=== PATIENT | female | born 2000 | race Caucasian/White ===

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

== ENCOUNTER 2018-04-19 14:32 | Emergency (ER) | payer BC ==
[~2018-04-19] VITALS: Ht 162.6 cm; Wt 77.2 kg
[~2018-04-19 14:32] MED LIST: ONDA4TAB10 SL
[2018-04-19 14:35] VITALS: TEMP 36.6; Ht 162.6 cm; Wt 77.2 kg
--- NOTE | 2018-04-19 15:25 | EMERGENCY ROOM VISIT NOTE ---
ED Visit Note First contact with patient: 14:38 CHIEF COMPLAINT: Pain with urination, altered personality HISTORY OF PRESENTING ILLNESS: This is a 17-year-old female who presents to the emergency department with her mother with complaint of pain with urination and altered personality for the past 3-4 days. Patient states she has been having dysuria, increased frequency of urination, but only urinating a small amount. Patient's mother states that she has been emotional and "all over the place" for the past few days as well. The patient is a poor historian and is unable to provide an accurate history. Per the patient's mother, she is acting very different from her usual self the past few days. The patient denies any hallucinations, SI/HI or thoughts of attempt. Per patient and her mother, she has no personal history of anxiety, depression, or mental health issues, but does have a younger sister who is on the autism spectrum and is diagnosed with multiple mental health problems. Private interview with the patient with the mom out of the room was also performed, the patient denies any physical or sexual abuse, she denies being sexually active, and she denies any recreational drug or alcohol use. She does note that she used to go to college and has not been able to go back, she is upset that she is missing out on things that her friends are doing. She also notes that her parents have given her a deadline for moving out of the house by the end of the year and she is feeling anxious about this. REVIEW OF SYSTEMS: A complete 10 point review of systems was reviewed with the patient with pertinent positives and negatives as per history of present illness. All else were negative. PAST MEDICAL HISTORY: No significant past medical or surgical history. Up-to- date on immunizations. SOCIAL HISTORY: Lives at home with family. She has a job at [employer]. She denies tobacco use, alcohol use, recreational drug use. ALLERGIES: No known medication allergies. PHYSICAL EXAM: CONSTITUTIONAL: Alert, cooperative. Appears anxious and tearful on exam. No acute distress. Mildly dehydrated, but otherwise well appearing and well nourished. HEENT: Normocephalic, atraumatic. Pupils equal, round and reactive to light, EOMI. TMs normal. Pharynx normal. Tacky mucous membranes. NECK: Supple, full active range of motion without discomfort. RESPIRATORY: Clear to auscultation bilaterally with no wheezing, crackles, rhonchi or stridor. Equal expansion bilaterally. CARDIOVASCULAR: Regular rate and rhythm with no murmurs, rubs or gallops. Normal peripheral perfusion. No edema. GASTROINTESTINAL: Soft, nontender, nondistended. No palpable masses or HSM. Bowel sounds present in all quadrants. MUSCULOSKELETAL: Full range of motion of all joints without discomfort. INTEGUMENTARY: No rash or other significant dermatologic conditions noted. NEUROLOGIC: Alert and oriented X 4 with normal affect. Cranial nerves II-XII grossly intact, no facial droop. No pronator drift. No focal neurologic deficits noted. Normal strength and sensation in all 4 extremities. Normal speech. Normal gait observed. PSYCH: Anxious and tearful at times. Rambling and tangential speech. Difficulty with completing a thought. Flight of ideas. Difficulty sitting still. ED COURSE AND MEDICAL DECISION MAKING: CC: Patient presenting with complaint of dysuria, altered personality DIFFERENTIAL DIAGNOSIS: Includes, but not limited to UTI, pyelonephritis, dehydration, electrolyte abnormality, substance abuse, incidental , anxiety, depression, bipolar, suicidality, DKA, metabolic acidosis, thyroid disorder, acute psychosis, among others. INTERPRETATION OF LABS: No leukocytosis, no anemia, normal platelets, no significant electrolyte abnormalities, normal renal function, normal liver enzymes. TSH within normal limits. UA negative for infection, mild ketones. Urine negative. Urine drug screen negative. MEDICATION RECONCILIATION: I attest that I have personally reviewed the patient 's current medication list. INITIAL VITAL SIGNS REVIEW: I reviewed the patient's initial vital signs and interpret them as follows: T: Afebrile; BP: Normotensive; HR: Bradycardic; RR : Within normal limit; Pulse Ox: Within normal limits on room air. Blood pressure screening: The patient was found to have normal blood pressure on screening and does not require follow-up for repeat blood pressure check. SUMMARY: Patient was evaluated at bedside, history and physical exam performed. Patient is alert and oriented, in no acute, but does appear anxious and tearful , pacing around the room. Neurologic exam is normal with no focal deficits. Patient is fully oriented 4 , but has difficulty formulating thoughts and has flight of ideas and tangential conversation. Patient seems very anxious about many different things, including school, work, and family. Orders were placed at bedside for labs, UA and urine , urine drug screen to evaluate for medical clearance. Patient discussed with Dr. Cross, who agrees with my assessment and plan. Labs reviewed as above, unremarkable. She does appear to be mildly dehydrated, which may be the cause of her dysuria. She was encouraged to hydrate with oral fluids. I spoke with Viola, psych skilled nursing case manager, who did evaluate the patient, and felt that she could be appropriate for voluntary inpatient treatment if the patient was agreeable. Please see her note for further details. The patient was given sublingual Ativan 1 mg for her severe anxiety. On reassessment, the patient does seem more calm and is able to formulate her thoughts better, and she is no longer tearful, but does continue to have flight of ideas and some tangential speech. Patient also seems to get especially agitated when including her mother in the discussion. She was strongly encouraged by myself and the psych skilled nursing case manager to consider inpatient therapy to best meet her needs. The patient repeatedly states "I know I should stay but I don't want my parents going through my things. I have a dog who has really bad separation anxiety and I just got him to not worry when I leave." After a lengthy discussion with the patient, the psychiatric skilled nursing case manager, and the patient's mother, the patient did verbalize that she did not wish to be admitted and would like to be discharged home. Patient is not exhibiting any dangerous behaviors, and she denies any suicidal or homicidal ideations or plans. I do believe that she is safe to be discharged home. Patient was provided with outpatient resources for psychiatric help, and was encouraged to follow-up with her PCP as well. Patient was also given strict return precautions should her symptoms worsen, she verbalized understanding. Patient was discharged home in stable condition and ambulatory. Problem List Medical Problems: (1) No Known Active Medical Problems Status: Chronic Current/Historical Medications No Active Prescriptions or Reported Meds Allergies Coded Allergies: Latex (Verified Allergy, Intermediate, Rash, 04/19/18) Vital Signs Date Time Temp Pulse Resp B/P (MAP) Pulse Ox O2 Delivery O2 Flow Rate FiO2 04/19/18 19:09 93 18 123/88 98 04/19/18 18:30 107 20 137/79 94 Room Air 04/19/18 16:30 112 20 120/80 100 Room Air 04/19/18 14:35 36.6 55 17 134/87 97 Room Air Laboratory Results 04/19/18 15:15 Red Blood Count 4.66, Mean Corpuscular Volume 88.8, Mean Corpuscular Hemoglobin 29.8, Mean Corpuscular Hemoglobin Concent 33.6, Mean Platelet Volume 9.2, Neutrophils (%) (Auto) 61.5, Lymphocytes (%) (Auto) 32.6, Monocytes (%) (Auto) 4.5, Eosinophils (%) (Auto) 0.8, Basophils (%) (Auto) 0.3, Neutrophils # (Auto) 5.91, Lymphocytes # (Auto) 3.14, Monocytes # (Auto) 0.43, Eosinophils # (Auto) 0.08, Basophils # (Auto) 0.03 04/19/18 15:15 Test 04/19/18 15:10 04/19/18 15:15 Urine Color YELLOW Urine Appearance CLEAR (CLEAR) Urine pH 5.5 (4.5-7.5) Urine Specific [place] 1.007 (1.000-1.030) Urine Protein NEG (NEG) Urine Glucose (UA) NEG (NEG) Urine Ketones 1+ (NEG) Urine Occult Blood NEG (NEG) Urine Nitrite NEG (NEG) Urine Bilirubin NEG (NEG) Urine Urobilinogen NEG (NEG) Urine Leukocyte Esterase NEG (NEG) Urine Test NEG (NEG) Urine Opiates Screen NEG (NEG) Urine Methadone, Qualitative NEG (NEG) Urine Barbiturates NEG (NEG) Urine Phencyclidine (PCP) Level NEG (NEG) Ur Amphetamine/Methamphetamine NEG (NEG) MDMA (Ecstasy) Screen NEG (NEG) Urine Benzodiazepines Screen NEG (NEG) Urine Cocaine Metabolite NEG (NEG) Urine Marijuana (THC) NEG (NEG) White Blood Count 9.62 K/uL (4.8-10.8) Red Blood Count 4.66 M/uL (4.2-5.4) Hemoglobin 13.9 g/dL (12.0-16.0) Hematocrit 41.4 % (37-47) Mean Corpuscular Volume 88.8 fL (80-100) Mean Corpuscular Hemoglobin 29.8 pg (25-34) Mean Corpuscular Hemoglobin Concent 33.6 g/dl (32-36) Platelet Count 396 K/uL (130-400) Mean Platelet Volume 9.2 fL (7.4-10.4) Neutrophils (%) (Auto) 61.5 % Lymphocytes (%) (Auto) 32.6 % Monocytes (%) (Auto) 4.5 % Eosinophils (%) (Auto) 0.8 % Basophils (%) (Auto) 0.3 % Neutrophils # (Auto) 5.91 K/uL (1.4-6.5) Lymphocytes # (Auto) 3.14 K/uL (1.2-3.4) Monocytes # (Auto) 0.43 K/uL (0.11-0.59) Eosinophils # (Auto) 0.08 K/uL (0-0.5) Basophils # (Auto) 0.03 K/uL (0-0.2) RDW Standard Deviation 45.2 fL (36.4-46.3) RDW Coefficient of Variation 13.9 % (11.5-14.5) Immature Granulocyte % (Auto) 0.3 % Immature Granulocyte # (Auto) 0.03 K/uL (0.00-0.02) Anion Gap 9.0 mmol/L (3-11) Est Creatinine Clear Calc Drug Dose 135.9 ml/min Estimated GFR () 147.7 Estimated GFR (Non- 127.4 BUN/Creatinine Ratio 11.2 (10-20) Calcium Level 9.2 mg/dl (8.5-10.1) Total Bilirubin 0.7 mg/dl (0.2-1) Aspartate Amino Transf (AST/SGOT) 26 U/L (15-37) Alanine Aminotransferase (ALT/SGPT) 80 U/L (12-78) Alkaline Phosphatase 66 U/L (45-117) Total Protein 7.9 gm/dl (6.4-8.2) Albumin 4.5 gm/dl (3.4-5.0) Globulin 3.4 gm/dl (2.5-4.0) Albumin/Globulin Ratio 1.3 (0.9-2) Thyroid Stimulating Hormone (TSH) 0.853 uIu/ml (0.300-4.500) Medications Administered Medications (Trade) Dose Ordered Sig/Anabella Route Start Time Stop Time Status Last Admin Dose Admin Lorazepam (Ativan Tab) 1 mg NOW STAT SL 04/19/18 17:05 04/19/18 17:06 DC 04/19/18 17:14 1 MG Departure Information Impression Primary Impression: Anxiety Additional Impression: Dehydration Dispostion Home / Self-Care Condition GOOD Prescriptions No Active Prescriptions or Reported Meds Referrals No Doctor, Assigned (PCP) Patient Instructions ED Psychosis, ED Stress React, My [facility] Additional Instructions You have been evaluated and treated in the emergency department today for your discomfort with urination and for your anxiety. You were treated with Ativan for your anxiety today. You were found to be mildly dehydrated, but no evidence of a urinary tract infection or any other abnormalities and laboratory results have ruled out any emergent reasons for further evaluation or admission. Drink plenty of fluids throughout the day to stay well hydrated. Please follow-up with your primary care provider in the next few days for reevaluation. You have also been provided with resources by our Psychiatric skilled nursing case manager for outpatient treatment options. Please call to set this up. Please return to the emergency department for any worsening symptoms including severe worsening anxiety, thoughts of harming yourself or others, hallucinations , severe headaches, confusion, dizziness or passing out, or any other concerns. Work Instructions Return To Work: 3 days Problem Qualifiers
[2018-04-19 15:48] LABS: BASO % 0.3 %; BASO ABS # 0.03 K/uL (0-0.2); EOS % 0.8 %; EOS ABS # 0.08 K/uL (0-0.5); HEMATOCRIT 41.4 % (37-47); HEMOGLOBIN 13.9 g/dL (12.0-16.0); IG# 0.03 K/uL (0.00-0.02); LYMPH % 32.6 %; LYMPH ABS # 3.14 K/uL (1.2-3.4); MEAN CELL VOLUME 88.8 fL (80-100); MEAN CORPUSCULAR HEMOGLOBIN 29.8 pg (25-34); MEAN CORPUSCULAR HGB CONC 33.6 g/dl (32-36); MEAN PLATELET VOLUME 9.2 fL (7.4-10.4); MONO % 4.5 %; MONO ABS # 0.43 K/uL (0.11-0.59); NEUT % 61.5 %; NEUT ABS # 5.91 K/uL (1.4-6.5); PLATELET COUNT 396 K/uL (130-400); RED CELL DISTRIBUTION WIDTH CV 13.9 % (11.5-14.5); RED CELL DISTRIBUTION WIDTH SD 45.2 fL (36.4-46.3); WHITE BLOOD COUNT 9.62 K/uL (4.8-10.8)
[2018-04-19 16:17] LABS: ALBUMIN 4.5 gm/dl (3.4-5.0); CALCIUM 9.2 mg/dl (8.5-10.1); CREATININE 0.67 mg/dl (0.60-1.20); POTASSIUM 3.5 mmol/L (3.5-5.1); TOTAL PROTEIN 7.9 gm/dl (6.4-8.2)
[2018-04-19] MEDS ORDERED: LORAZEPAM 1 MG TAB SL STA (17:05)
[2018-04-19 19:09] VITALS: BP 123/88; PULSE 93; O2SAT 98
== END 2018-04-19 19:09 | disposition home or self-care (01) ==
LOC: C.EDB 14:34 → C.EDC 19:09
DX: F41.9 Anxiety disorder, unspecified (principal); E86.0 Dehydration; Z91.040 Latex allergy status

== ENCOUNTER 2018-04-19 20:11 | Inpatient (IN) | payer BC, OTHER ==
[~2018-04-19] VITALS: Ht 162.6 cm; Wt 76.3 kg
[2018-04-19 20:36] VITALS: O2SAT 98
--- NOTE | 2018-04-19 21:00 | EMERGENCY ROOM VISIT NOTE ---
History Report prepared by Yesenia: Monty French Under the Supervision of: Dr. Michael Rob M.D. First contact with patient: 20:21 Chief Complaint: MENTAL HEALTH EVALUATION Stated Complaint: MENTAL HEALTH History of Present Illness The patient is a 17 year old female who presents to the Emergency Room. EMR was reviewed. The patient was discharged 3 hours ago. At that time, labs were normal , including CBC, renal profile, urinalysis, liver function test, and TSH. The psychiatric adult protective caseworker states that she spoke with the patient an hour ago. She reports that the mother told her that the patient is "flighty" and denies suicidal or homicidal ideation. She reports that they deny any personal mental health history of the patient.The patient states that she wanted to be discharged, but her mother wanted her to come back. The mother then claims that the patient told her that she was unsure why they discharged her. The patient then elaborated that she does want to be reevaluated but "can't get over the room" she is currently in and reports feeling anxious. The patient and her mother note that the patient's sibling has a history of "severe" mental health problems, and the patient does not want to be like her sibling. She denies having difficulty concentrating. She states that she did not have anything to eat today. Source of History: patient, parent, other (psychiatric adult protective caseworker, EMR) Onset: 3 hours ago Position: other (global) Quality: other (wanting reevaluation) Modifying Factors (Relieving): other (none) Note: denies difficulty concentrating Review of Systems See HPI for pertinent positives and negatives. A total of ten systems were reviewed and were otherwise negative. Past Medical & Surgical Medical Problems: (1) No Known Active Medical Problems Family History History of mental health disorder in sibling Social History Smoking Status: Never Smoker Alcohol Use: none Housing Status: lives with family Occupation Status: student Current/Historical Medications No Active Prescriptions or Reported Meds Allergies Coded Allergies: Latex (Verified Allergy, Intermediate, Rash, 04/19/18) Physical Exam Vital Signs Date Time Temp Pulse Resp B/P (MAP) Pulse Ox O2 Delivery O2 Flow Rate FiO2 04/19/18 20:36 36.9 115 24 127/99 98 Room Air Physical Exam Physical Exam GENERAL: She is oriented to person, place, and time. She appears well- developed and well-nourished. She does not appear distressed. HENT: Exam performed. Head: Normocephalic and atraumatic. Right Ear: External ear normal. No mastoid tenderness. Left Ear: External ear normal. No mastoid tenderness. Mouth/Throat: The oropharynx is clear and moist. No trismus in the jaw. No dental abscesses or uvula swelling. No oropharyngeal exudate or tonsillar abscesses. EYES: Conjunctivae and EOM are normal. Pupils are equal, round, and reactive to light. Right eye exhibits no discharge. Left eye exhibits no discharge. No scleral icterus. NECK: Normal range of motion. Neck supple. No JVD present. No spinous process tenderness present. No carotid bruit present. No rigidity. No tracheal deviation and normal range of motion present. No Brudzinski's sign and no Kernig 's sign noted. CV: Normal rate, regular rhythm, normal heart sounds and intact distal pulses. There is no peripheral edema. Palpable radial pulses bue. PULM/CHEST: Effort normal and breath sounds normal. No respiratory distress. No stridor. She has no wheezes. She has no rales. Chest Wall: She exhibits no tenderness. ABD: The abdomen is soft. Bowel sounds are normal. She has no distension. No mass is present. There is no tenderness. There is no rebound, no guarding, no Carroll's sign and no tenderness at McBurney's point. Rovsig negative MUSC/SKEL: Normal range of motion. There is no peripheral edema, tenderness or deformity. LYMPH: No cervical adenopathy. NEURO: She is alert and oriented to person, place, and time. She has normal strength. No cranial nerve deficit or sensory deficit. Coordination and gait normal. GCS eye subscore is 4. GCS verbal subscore is 5. GCS motor subscore is 6. Cerebellar tests wnl. SKIN: Skin is warm and dry. She is not diaphoretic. PSYCH: She has a labile mood and affect. She is very anxious. Crying and yelling at mother. Medical Decision & Procedures Laboratory Results 04/19/18 22:55 Red Blood Count 4.67, Mean Corpuscular Volume 88.4, Mean Corpuscular Hemoglobin 30.0, Mean Corpuscular Hemoglobin Concent 33.9, Mean Platelet Volume 9.0, Neutrophils (%) (Auto) 65.8, Lymphocytes (%) (Auto) 27.9, Monocytes (%) (Auto) 5.2, Eosinophils (%) (Auto) 0.6, Basophils (%) (Auto) 0.3, Neutrophils # (Auto) 6.32, Lymphocytes # (Auto) 2.68, Monocytes # (Auto) 0.50, Eosinophils # (Auto) 0.06, Basophils # (Auto) 0.03 04/19/18 22:55 Test 04/19/18 00:00 04/19/18 22:55 Urine Color YELLOW Urine Appearance CLEAR (CLEAR) Urine pH 5.0 (4.5-7.5) Urine Specific [place] 1.020 (1.000-1.030) Urine Protein NEG (NEG) Urine Glucose (UA) NEG (NEG) Urine Ketones 4+ (NEG) Urine Occult Blood NEG (NEG) Urine Nitrite NEG (NEG) Urine Bilirubin NEG (NEG) Urine Urobilinogen NEG (NEG) Urine Leukocyte Esterase NEG (NEG) Urine Test NEG (NEG) Urine Opiates Screen NEG (NEG) Urine Methadone, Qualitative NEG (NEG) Urine Barbiturates NEG (NEG) Urine Phencyclidine (PCP) Level NEG (NEG) Ur Amphetamine/Methamphetamine NEG (NEG) MDMA (Ecstasy) Screen NEG (NEG) Urine Benzodiazepines Screen NEG (NEG) Urine Cocaine Metabolite NEG (NEG) Urine Marijuana (THC) NEG (NEG) White Blood Count 9.61 K/uL (4.8-10.8) Red Blood Count 4.67 M/uL (4.2-5.4) Hemoglobin 14.0 g/dL (12.0-16.0) Hematocrit 41.3 % (37-47) Mean Corpuscular Volume 88.4 fL (80-100) Mean Corpuscular Hemoglobin 30.0 pg (25-34) Mean Corpuscular Hemoglobin Concent 33.9 g/dl (32-36) Platelet Count 377 K/uL (130-400) Mean Platelet Volume 9.0 fL (7.4-10.4) Neutrophils (%) (Auto) 65.8 % Lymphocytes (%) (Auto) 27.9 % Monocytes (%) (Auto) 5.2 % Eosinophils (%) (Auto) 0.6 % Basophils (%) (Auto) 0.3 % Neutrophils # (Auto) 6.32 K/uL (1.4-6.5) Lymphocytes # (Auto) 2.68 K/uL (1.2-3.4) Monocytes # (Auto) 0.50 K/uL (0.11-0.59) Eosinophils # (Auto) 0.06 K/uL (0-0.5) Basophils # (Auto) 0.03 K/uL (0-0.2) RDW Standard Deviation 44.7 fL (36.4-46.3) RDW Coefficient of Variation 13.9 % (11.5-14.5) Immature Granulocyte % (Auto) 0.2 % Immature Granulocyte # (Auto) 0.02 K/uL (0.00-0.02) Anion Gap 9.0 mmol/L (3-11) Estimated GFR () > 150.0 Estimated GFR (Non- 130.7 BUN/Creatinine Ratio 9.2 (10-20) Calcium Level 8.6 mg/dl (8.5-10.1) Total Bilirubin 0.7 mg/dl (0.2-1) Direct Bilirubin 0.2 mg/dl (0-0.2) Aspartate Amino Transf (AST/SGOT) 20 U/L (15-37) Alanine Aminotransferase (ALT/SGPT) 69 U/L (12-78) Alkaline Phosphatase 67 U/L (45-117) Total Protein 7.5 gm/dl (6.4-8.2) Albumin 4.2 gm/dl (3.4-5.0) Thyroid Stimulating Hormone (TSH) 1.710 uIu/ml (0.300-4.500) Ethyl Alcohol mg/dL < 3.0 mg/dl (0-3) Laboratory results reviewed by me Medications Administered Medications (Trade) Dose Ordered Sig/Anabella Route Start Time Stop Time Status Last Admin Dose Admin Lorazepam (Ativan Inj) 1 mg NOW STAT IM 04/19/18 21:10 04/19/18 21:11 DC 04/19/18 21:14 1 MG ED Course 2031: The patient was evaluated in room A8. A complete history and physical exam was performed. Patient and mother at bedside now both state that they want the patient admitted for mental health evaluation and psychiatric help. Ordered Ativan 1 mg IM. Medical Decision Patient cleared medically will be admitted to psychiatric service. Medication Reconcilliation Current Medication List: was personally reviewed by me Blood Pressure Screening Patient's blood pressure: Normal blood pressure Blood pressure disposition: Did not require urgent referral Impression Primary Impression: Manic episode Scribe Attestation The scribe's documentation has been prepared under my direction and personally reviewed by me in its entirety. I confirm that the note above accurately reflects all work, treatment, procedures, and medical decision making performed by me. The chart was completed utilizing [employer] Speech voice recognition software. Grammatical errors, random word insertions, pronoun errors, and incomplete sentences are an occasional consequence of this system due to software limitations, ambient noise, and hardware issues. Any formal questions or concerns about the content, text, or information contained within the body of this dictation should be directly addressed to the physician for clarification. Departure Information Dispostion Mental Health Acute Care Prescriptions No Active Prescriptions or Reported Meds Referrals Paul Aldana III, CRNP (PCP) Patient Instructions My [facility]
[2018-04-19] MEDS ORDERED: LORAZEPAM 2 MG/ML 1 ML VIAL IM STA (21:10)
[2018-04-19 23:13] LABS: BASO % 0.3 %; BASO ABS # 0.03 K/uL (0-0.2); EOS % 0.6 %; EOS ABS # 0.06 K/uL (0-0.5); HEMATOCRIT 41.3 % (37-47); IG# 0.02 K/uL (0.00-0.02); LYMPH % 27.9 %; LYMPH ABS # 2.68 K/uL (1.2-3.4); MEAN CELL VOLUME 88.4 fL (80-100); MEAN CORPUSCULAR HGB CONC 33.9 g/dl (32-36); MONO % 5.2 %; NEUT % 65.8 %; NEUT ABS # 6.32 K/uL (1.4-6.5); PLATELET COUNT 377 K/uL (130-400); RED CELL DISTRIBUTION WIDTH CV 13.9 % (11.5-14.5); RED CELL DISTRIBUTION WIDTH SD 44.7 fL (36.4-46.3); WHITE BLOOD COUNT 9.61 K/uL (4.8-10.8)
[2018-04-19] MEDS ORDERED: NURSING VERBAL MED ORDER ONE (23:15)
[2018-04-19 23:43] LABS: ALBUMIN 4.2 gm/dl (3.4-5.0); ALKALINE PHOSPHATASE 67 U/L (45-117); ALT/SGPT 69 U/L (12-78); AST/SGOT 20 U/L (15-37); BLOOD UREA NITROGEN 6 mg/dl (7-18); CALCIUM 8.6 mg/dl (8.5-10.1); CARBON DIOXIDE 23 mmol/L (21-32); CREATININE 0.62 mg/dl (0.60-1.20); GLUCOSE 102 mg/dl (70-99); POTASSIUM 3.6 mmol/L (3.5-5.1); SODIUM 140 mmol/L (136-145); TOTAL PROTEIN 7.5 gm/dl (6.4-8.2)
[2018-04-20] MEDS ORDERED: RISPERIDONE 1 MG TAB PO ONE (00:15)
[2018-04-20] MEDS ORDERED: hydrOXYzine HCL 25 MG TAB PO PRN (01:00)
[2018-04-20] MEDS ORDERED: SODIUM CHLORIDE 0.65% NA SOLN 45 ML (OCEAN) PRN (01:00)
[2018-04-20] MEDS ORDERED: BISMUTH SUBSALICYLATE PER ML OMNICELL CHARGE PO PRN (01:00)
[2018-04-20] MEDS ORDERED: ALUMINUM/MAGNESIUM SUSP 30 ML UDC PO PRN (01:00)
[2018-04-20] MEDS ORDERED: MAGNESIUM HYDROXIDE SUSP 30 ML UDC PO PRN (01:00)
[2018-04-20 01:19] VITALS: BP 123/81; PULSE 99; TEMP 36.9; Ht 162.6 cm; Wt 76.3 kg
--- NOTE | 2018-04-20 10:18 | Psychiatric History & Physical ---
History Date of Service Apr 20, 2018. Identifying Data Tami Peres is a 17-year-old female admitted on Apr 19, 2018 at 23:10 who currently lives with her parents in a private home in [facility]. She was admitted through the [facility] ER last evening, initially presenting for workup of possible UTI, but appeared anxious and disorganized and returned after initial discharge for mental health eval at mother's encouragement. Patient is found to be a rather difficult historian due to circumstantial to tangential thought process. Chief Complaint "I am fine except for my family ". History of Present Illness This is an interesting young woman without prior formalized mental health history. She was admitted through the ER last evening due to mother's concern that she has not been acting like her normal self. Apparently she has been disorganized in her thinking, rambling in her speech, pacing, waking family members up overnight, anxious, demonstrating diminished self-care. Medical workup in the ER was negative for acute process. Drug screen negative. She received Ativan in the ER. At time of admission to the behavioral health unit she was still anxious, labile, disorganized in her thinking, difficult to redirect. She received Risperdal 0.5 mg last evening and ultimately slept well the group room. On interview patient is felt to be a fair historian. Thoughts still meandering, circumstantial to tangential, however she seems to be improved as compared to description of clinical status last evening. She states she has been feeling "fine" apart from stress associated with being with her family members. She describes her family as controlling, her father in particular who she believes "treats me like trash." She denies physical or sexual abuse. She does identify multiple stressors including graduation from [employer] where she felt accepted, recently becoming sick with salmonella from a alevism function, and by the time she had recovered from that many of her friends had already left for college. She is not planning to attend college, working at [employer], and seems to be struggling with the loss and transition. She repeatedly speaks about the fact that she is now an "adult. " She reports her parents are making her pay rent to stay in the home since last June. She describes long-standing stress associated with her autistic younger sisters dramatic behaviors. Apparently her sister would scream, yell, threatened suicide, threatening homicide. Her younger sister has not been living in the household since 2017. "It was always about her." She reports that her younger brother is in therapy for unknown reasons. She states her mother recently told her that her parents marriage is falling apart within the past few weeks. She seems to recoil from questions about her emotional state. "I never talk about myself." She denies recollection of mood cycles in the past , particularly denies periods of hypomania or alaina. She also denies periods of feeling overtly depressed. She does admit that her sleep has been declining in the past week and missed 1 or 2 nights of sleep this week which is not typical for her however she does state that she felt tired after missing the sleep. Energy has been low. She denies crying spells. Appetite has been diminished with 15 pound weight loss since salmonella earlier this month. She notes declining interest. Denies thoughts of life not being worth living, suicidal ideation, homicidal ideation. Denies any history of self-injurious behaviors were impulses. Denies a history of panic attacks and does not perceive herself to be an excessive worrier at her baseline. Historically she does not like to be in crowds and states that she never liked public high school but did not like the smaller [employer] school. Denies symptoms of OCD, PTSD, hallucinations, or appreciation for delusions. She does perceive feeling more calm this morning after getting the Risperdal last night which was well tolerated. Past Psychiatric History Current OP Treatment: no current treatment Prior OP Treatment: no prior treatment (Apart from some family therapy) Prior Psych Hospitalizations: none Access to a Gun: No Suicide Attempts: No Past Medication Trials None Past Medical/Surgical History History of Concussion/Seizure: Yes (History of mild concussion chano year of high school. denies seizure) Denies personal history of obesity, dyslipidemia, diabetes, hypertension, heart disease Allergies Allergies: Coded Allergies: Latex (Verified Allergy, Intermediate, Rash, 04/19/18) Home Medications No Active Prescriptions or Reported Meds Family History History of mental health disorder in sibling History of Suicide: No History of Substance Abuse: Yes Psychiatric History: Yes Father has Crohn's disease and cardiomyopathy. Mother possibly treated for depression. MS. Brother in counseling for unknown mental health disorder. Sister with autism spectrum disorder, ODD, possible bipolar disorder, personality disorder Alcohol Use Alcohol Use In Past 12 Months: No AUDIT Total Score: 0 Smoking Use Smoking Status: Never Smoker Substance History none Personal History Childhood: Present Home with parents in [facility] Education: graduated from high school (Denies behavioral problems. [employer]) Work History: [employer] Relationship History: never Children: 0 Spiritual Affiliation: [employer]. family life [employer] Legal History: none Psychological Trauma History: Other (Chronic family stressors. Denies abuse history) Review of Systems Constitutional: other (Fatigue, weight loss, low appetite) ENT: reports: loss of hearing (Reports gradual loss of hearing on right) Cardiovascular: reports: no symptoms reported Respiratory: reports: no symptoms reported Gastrointestinal: other (Recent nausea and diarrhea result) Genitourinary - Female: reports: no symptoms Musculoskeletal: joint pain Integumentary: no symptoms reported Neurologic: reports: other (Concentration difficulty) Endocrine: no symptoms Hematologic / Lymphatic: no symptoms Examination Physical Examination A physical exam was performed in the ER prior to admission to the unit by Dr Rob. I accept that physical as correct/medical clearance for the inpatient physical exam. Vital Signs Vital Signs Past 12 Hours Date Time Temp Pulse Resp B/P (MAP) Pulse Ox O2 Delivery O2 Flow Rate FiO2 04/20/18 01:19 36.9 99 18 123/81 Laboratory Results Last 24 Hours Test 04/19/18 22:55 White Blood Count 9.61 K/uL Red Blood Count 4.67 M/uL Hemoglobin 14.0 g/dL Hematocrit 41.3 % Mean Corpuscular Volume 88.4 fL Mean Corpuscular Hemoglobin 30.0 pg Mean Corpuscular Hemoglobin Concent 33.9 g/dl Platelet Count 377 K/uL Mean Platelet Volume 9.0 fL Neutrophils (%) (Auto) 65.8 % Lymphocytes (%) (Auto) 27.9 % Monocytes (%) (Auto) 5.2 % Eosinophils (%) (Auto) 0.6 % Basophils (%) (Auto) 0.3 % Neutrophils # (Auto) 6.32 K/uL Lymphocytes # (Auto) 2.68 K/uL Monocytes # (Auto) 0.50 K/uL Eosinophils # (Auto) 0.06 K/uL Basophils # (Auto) 0.03 K/uL RDW Standard Deviation 44.7 fL RDW Coefficient of Variation 13.9 % Immature Granulocyte % (Auto) 0.2 % Immature Granulocyte # (Auto) 0.02 K/uL Sodium Level 140 mmol/L Potassium Level 3.6 mmol/L Chloride Level 108 mmol/L Carbon Dioxide Level 23 mmol/L Anion Gap 9.0 mmol/L Blood Urea Nitrogen 6 mg/dl Creatinine 0.62 mg/dl Estimated GFR () > 150.0 Estimated GFR (Non- 130.7 BUN/Creatinine Ratio 9.2 Random Glucose 102 mg/dl Calcium Level 8.6 mg/dl Total Bilirubin 0.7 mg/dl Direct Bilirubin 0.2 mg/dl Aspartate Amino Transf (AST/SGOT) 20 U/L Alanine Aminotransferase (ALT/SGPT) 69 U/L Alkaline Phosphatase 67 U/L Total Protein 7.5 gm/dl Albumin 4.2 gm/dl Thyroid Stimulating Hormone (TSH) 1.710 uIu/ml Ethyl Alcohol mg/dL < 3.0 mg/dl Mental Examination During interview pt is: cooperative Appearance: appropriately dressed Eye contact is: good Motor behavior is: other (Restless) Speech: other (Speech is overproductive but not pressured. Articulation clear) Affect: anxious (She is not tearful or expansive) Mood is: anxious Thought process: circumstantial, tangential, looseness of associations Thought content: other (Negative for overt paranoia or other delusions) Suicidal thought are: denied Homicidal thoughts are: denied Hallucinations: denies auditory, denies visual Cognition: other (Attention is impaired. She is grossly oriented.) Insight: limited Judgement: limited Impression / Recommendations Impression This is an interesting 17-year-old female without prior psychiatric history who presented on urging of her family with disorganized thought process, diminished sleep, increased anxiety. She appears to have multiple chronic and acute stressors including history of angry sibling with significant emotional dysregulation behavioral disturbance in the household, strained relationship with parents, transitioning from school work, watching her friends off to college and likely feeling left behind. She also had a recent medical illness receiving treatment for salmonella earlier this month which was associated with significant weight loss. Unclear if showing signs of budding primary thought disorder or possibly bipolar affective disorder. Responded positively to low- dose Risperdal last evening with improved thought cohesion this am. Dx: Unspecified trauma and stress related disorder, provisional; r/o unspecified psychosis; r/o bpad Inventory Assets Strengths: Able to communicate, accepting of treatment Needs: Support, medication management Risk Factors Assessment : Yes /single/: No Higher / Fall in social status: No Access to guns: No Health problems: No Mental Health Diagnoses: No Substance use disorders: No Previous attempt: No Previous psychiatric stay: No Hopelessness: No Smoker: No Protective Factors Assessment Protestant beliefs: Yes : No Responsible for young children: No Employed: Yes Recommendations (1) Acute stress reaction 04/20 -Patient requires inpatient hospitalization at the present time due to disorganization of thought process, diminished self-care and increasing erratic behaviors at home in absence of outpatient supports -Based on interview today difficult to differentiate acute stress reaction and disorganization of thought process secondary to severe anxiety and possibly sleep deprivation as compared to manic episode or psychosis. Seems to be responding positively to Risperdal so far and will make a 0.25 mg twice daily dose prn available for acute anxiety today and continue the 0.5 mg bedtime dose for now. Risks and benefits of the medication reviewed. Unclear if this will be an active treatment at time of discharge and will hold off on ordering additional lab work the present time but we will need fasting labs if she is discharged on the medication - Patient is denying suicidal or homicidal ideation - Will need aftercare arranged - Will need family meeting - Mother has history of MS. 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 Consider MRI - Patient will participate in therapeutic programming as tolerated CPT Code Initial Hospital Care: [id number]
[2018-04-20] MEDS ORDERED: RISPERIDONE 0.5 MG TAB PO PRN (10:45)
[2018-04-20] MEDS: LORAZEPAM 0.5 MG TAB PO PRN (14:21)
[2018-04-20] MEDS: RISPERIDONE 0.5 MG TAB PO PRN (16:21)
[2018-04-20] MEDS ORDERED: RISPERIDONE 0.5 MG TAB PO SCH (22:00)
[2018-04-21] MEDS: hydrOXYzine HCL 25 MG TAB PO PRN ×2 (00:10→23:54)
[2018-04-21] MEDS: LORAZEPAM 0.5 MG TAB PO PRN ×2 (00:10→23:54)
[2018-04-21] MEDS: RISPERIDONE 0.5 MG TAB PO PRN ×2 (00:10→15:51)
[2018-04-21 06:52] VITALS: BP_SYST 100; BP_SYST 117; BP_DIAS 63; BP_DIAS 79; PULSE 89; PULSE 91; TEMP 36.8
--- NOTE | 2018-04-21 08:11 | Psychiatric Progress Notes ---
Progress Note Date of Service Apr 21, 2018. Interval History Tami Peres is a 17-year-old female admitted on Apr 19, 2018 at 23:10 who currently lives with her parents in a private home in [facility]. She was admitted through the ER after 2 presentations in one day , initially presenting for workup of possible UTI, but appeared anxious and disorganized and returned after initial discharge for mental health eval at mother's encouragement. Patient is found to be a rather difficult historian due to circumstantial to tangential thought process. Chief Complaint "My mom saw I was crazy, but being here isn't making it any better". Subjective Patient was seen & assessed interval progress reviewed with Treatment Team. Staff report she continues to be disorganized and had a difficult meeting with her parents over the weekend, as patient was disorganized and poorly able to engage. She submitted a 72 hour notice yesterday. She is getting hydroxyzine, lorazepam, and risperidone prns as well as scheduled risperidone. A second family meeting is scheduled for Saturday. On my assessment today, the patient is very loose, tangential and difficult to follow, talking about not wanting to be in the hospital, and is extremely upset as "I can't read analog clocks, I don't know what time it is!" She cannot explain the symptoms she was having prior to admission, talking about her dog, and her mother, answering with unrelated information. She says she could only answer these questions if she were at home , then says she needs her mother to answer questions for her. She is frequently near tears and apologizing for unclear reasons. She says she couldn't eat lunch because other patients were talking at the table, "and I was taught not to talk at the dinner table." She appears confused and easily overwhelmed, stating she is confused about who are staff and who are patients, as she watches ER and that 's what she expects here. She is crying that she wants to go outside and "have my dog to hold." She repeats the same statements over and over, stating she "checked myself out," "I didn't want to be here in the first place," "I don't know what time it is." Review of Systems Denies pain, REHMAN, SI symptoms Sleep Information Total Hours of Sleep: 5.00 Meal Information Percent of Breakfast Consumed: 0 Percent of Lunch Consumed: 10 Mental Status Exam During interview pt is: cooperative (partially) Appearance: appropriately dressed (sweatpants, sweater) Eye contact is: good Motor behavior is: steady gait & station, no abnormal motor movements, other ( Restless) Speech: other (Speech is overproductive, not pressured, articulation clear, plaintive tone at times) Affect: labile (near tears at times, then qiuckly normalizes), anxious Mood is: anxious, other ("I think I"m driving myself crazy.") Thought process: circumstantial, tangential, looseness of associations, other ( disorganized, difficult to follow, repeating the same phrases over and over) Thought content: other (Negative for overt paranoia or other delusions) Suicidal thought are: denied Homicidal thoughts are: denied Hallucinations: denies auditory, denies visual Cognition: other (Attention is impaired. She is grossly oriented.) Intelligence estimated to be: average Insight: limited Judgement: limited Impression 17-year-old female without prior psychiatric history who presented with disorganized thought process, diminished sleep, mood lability, and increased anxiety. She reports multiple chronic and acute stressors including history of angry sibling with significant emotional dysregulation behavioral disturbance in the household, strained relationship with parents, transitioning from school to work, watching her friends off to college and likely feeling left behind. She also had a recent medical illness receiving treatment for salmonella earlier this month which was associated with significant weight loss. Unclear if showing signs of budding primary thought disorder or possibly bipolar affective disorder. Has been started on risperidone. Dx: Unspecified trauma and stress related disorder, provisional; r/o unspecified psychosis; r/o bpad Plan (1) Acute stress reaction 04/20 - Patient requires inpatient hospitalization at the present time due to disorganization of thought process, diminished self-care and increasing erratic behaviors at home in absence of outpatient supports - Based on interview today difficult to differentiate acute stress reaction and disorganization of thought process secondary to severe anxiety and possibly sleep deprivation as compared to manic episode or psychosis. Seems to be responding positively to Risperdal so far and will make a 0.25 mg twice daily dose prn available for acute anxiety today and continue the 0.5 mg bedtime dose for now. Risks and benefits of the medication reviewed. Unclear if this will be an active treatment at time of discharge and will hold off on ordering additional lab work the present time but we will need fasting labs if she is discharged on the medication - Patient is denying suicidal or homicidal ideation - Will need aftercare arranged - Will need family meeting - Mother has history of MS. 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 Consider MRI - Patient will participate in therapeutic programming as tolerated 04/21 - Increase risperidone to 1mg HS to target psychosis/alaina. - Encourage group attendance and participation as able to tolerate. - Will attempt a second family meeting tomorrow, if patient is able to tolerate. - Patient has submitted a 72 hour notice, but is not stable or discharge due to degree of disorganization. She is not able to answer basic questions, is distraught and disorganized. - Recommend brain MRI as an outpatient. - Encourage healthy coping skills. Discharge / Aftercare Planning Primary Care Physician: Name: Paul VALDEZ with [facility] Therapist: Name: none Meter Supervisor: Name: none Visit Code E&M Code: 75065 Inventory Assets Strengths: Able to communicate, accepting of treatment Needs: Support, medication management Risk Factors Assessment : Yes /single/: No Higher / Fall in social status: No Health problems: No Mental Health Diagnoses: No Substance use disorders: No Previous attempt: No Previous psychiatric stay: No Hopelessness: No Smoker: No Protective Factors Assessment Yazidi beliefs: Yes : No Responsible for young children: No Employed: Yes Supportive family: Yes Good rapport with provider: No (no OP providers) Data Vital Signs Last 24 Hrs: Date Time Temp Pulse Resp B/P (MAP) Pulse Ox O2 Delivery O2 Flow Rate FiO2 04/21/18 06:52 36.8 89 16 100/63 91 117/79 Meds Administered Last 24 Hrs: Meds Administered (Past 24Hrs) Medications (Trade) Dose Ordered Sig/Anabella Route Start Time Stop Time Status Last Admin Dose Admin Lorazepam (Ativan Inj) 1 mg NOW STAT IM 04/19/18 21:10 04/19/18 21:11 DC 04/19/18 21:14 1 MG Risperidone (Risperdal Tab) 0.5 mg NOW ONCE PO 04/20/18 00:15 04/20/18 00:46 DC 04/20/18 01:07 0.5 MG Hydroxyzine HCl (Vistaril Tab) 50 mg HSZ PRN PO 04/20/18 01:00 05/20/18 00:59 04/21/18 00:10 50 MG Risperidone (Risperdal Tab) 0.25 mg BID PRN PO 04/20/18 10:45 04/20/18 13:51 DC 04/20/18 12:31 0.25 MG Risperidone (Risperdal Tab) 0.5 mg HS PO 04/20/18 22:00 05/20/18 21:59 04/20/18 21:13 0.5 MG Risperidone (Risperdal Tab) 0.5 mg BID PRN PO 04/20/18 14:00 05/20/18 10:44 04/21/18 00:10 0.5 MG Lorazepam (Ativan Tab) 0.5 mg Q6H PRN PO 04/20/18 14:00 05/20/18 13:59 04/21/18 00:10 0.5 MG
[2018-04-21] MEDS ORDERED: RISPERIDONE 1 MG TAB PO SCH (22:00)
[2018-04-22 06:46] VITALS: BP_SYST 111; BP_SYST 98; BP_DIAS 68; BP_DIAS 73; PULSE 100; PULSE 72; TEMP 36.8
--- NOTE | 2018-04-22 09:00 | Psychiatric Progress Notes ---
Progress Note Date of Service Apr 22, 2018. Interval History Tami Peres is a 17-year-old female admitted on Apr 19, 2018 at 23:10 who currently lives with her parents in a private home in [facility]. She was admitted through the ER after 2 presentations in one day , initially presenting for workup of possible UTI, but appeared anxious and disorganized and returned after initial discharge for mental health eval at mother's encouragement. Patient is found to be a rather difficult historian due to circumstantial to tangential thought process. Chief Complaint "I'm trying to explain it..." Subjective Patient was seen & assessed interval progress reviewed with Nursing and social work. Staff report she had a visit from her mother last evening, who said she did research and believes that her psychotic symptoms are related to her recent salmonella infection, wanted additional testing, and an ID consult was requested. The patient remains easily overstimulated, confused, and frequently distressed. She declined dinner last evening, attended group and said she wanted to "fix things with my family," and "get out of the system." She received as needed doses of hydroxyzine, risperidone, and Lorazepam. On my assessment, the patient is loose and disorganized. She is unable to stay on topic, often answering with unrelated information. She gives conflicting reports, saying she doesn't need meds, then saying she needs help and meds are helping. She says she doesn't want to be here, "I was just here to get that stupid test for the urinary tract infection, I discharged myself..." She says she attended groups, and when asked what was discussed, she says "I don't want to be mean, am I being mean? I'm sorry... So I would be with another doctor and they would take me to group, cannot participate in the [place] now, I am trying to explain it to you, once I learn game I have to explain it to everyone else before I can enjoy it..." She becomes overwhelmed multiple times during the interview, and often does not finish her sentences. She repeatedly states she wants to leave the hospital, nothing is helping, and lists the same reasons over and over that she does not want to be here (wants to go outside, be in the sun, be at home). Participated in family meeting with the patient and her parents, partially without the patient present. Mother states that the patient was at baseline (functions independently, works, does ADLs) until she attended a school picnic and got sick with salmonella poisoning 03/28/2018. She was seen in the ER 03/30/2018, and just return to part-time work last week. She had an abrupt change in her mental status and behavior about one week ago, where she stopped sleeping, was anxious and distressed, not processing information, asking many questions and requiring significant redirection and reassurance throughout the day. This occurred in the context of multiple stressors, including returning to work after her GI illness, her father yelling at her about not keeping her room clean, and an argument between her parents. Mother states that she is often mad at the patient's father for not treating her well, and last week they got into an argument where her mother said that maybe she should kicked her father out instead of the patient, which led to the patient believing that her parents were going to divorce and it was her fault. Parents agree that she is not stable for discharge from the hospital, and the options discharge AGAINST MEDICAL ADVICE versus a 302 involuntary commitment were discussed. Mother also shared the patient was a good student, graduated with honors, and did not have any learning disabilities. Her brother is currently being treated for severe depression, and there is a significant family history of mental illness. Patient repeatedly complained of "feeling like a zombie" on medications, despite reassurance by family and staff that she does not appear zombielike. When she was encouraged to consider rescinding her 72 hour notice, and the risks of premature discharge were reviewed, she said she would rescind it, but only if she was immediately discharged. She repeatedly said that she wants to leave, that no one is listening to her, that she is getting worse, and "you guys will not let me be alone, that is all I want to do." Review of Systems Patient reports being sedated, slowed, and nausea, but denies vomiting. Sleep Information Total Hours of Sleep: 5.50 Meal Information Percent of Breakfast Consumed: 50 Percent of Lunch Consumed: 50 Percent of Dinner Consumed: 0 Mental Status Exam During interview pt is: alert and oriented, cooperative (partially, but a limited historian) Appearance: appropriately dressed, appropriately groomed, appeared stated age, other (Patient does not appear sedated or slowed.) Eye contact is: fair Motor behavior is: steady gait & station, no abnormal motor movements Speech: other (Speech is overproductive, not pressured, articulation clear, plaintive high-pitched tone) Affect: labile (Easily and frequently overwhelmed, distraught), anxious Mood is: other ("I am getting worse") Thought process: circumstantial, tangential, looseness of associations, other ( disorganized, difficult to follow, repeating the same phrases over and over) Thought content: cognitive distortions, other (Negative for overt paranoia or other delusions) Suicidal thought are: denied Homicidal thoughts are: denied Hallucinations: denies auditory, denies visual Cognition: other (Attention is impaired, unable to process or retain information.) Intelligence estimated to be: average Insight: limited Judgement: limited Impression This is an interesting 17-year-old female without prior psychiatric history who presented on urging of her family with disorganized thought process, diminished sleep, increased anxiety. She appears to have multiple chronic and acute stressors including history of angry sibling with significant emotional dysregulation behavioral disturbance in the household, strained relationship with parents, transitioning from school to work. She had a recent medical illness receiving treatment for salmonella earlier this month which was associated with significant weight loss, and there has been strain in her relationship with her father and in her parents' relationship, which she feels responsible for. Unclear if showing signs of budding primary thought disorder or possibly bipolar affective disorder. Dx: Unspecified trauma and stress related disorder, provisional; r/o unspecified psychosis; r/o bpad Plan (1) Acute stress reaction 04/20 - Patient requires inpatient hospitalization at the present time due to disorganization of thought process, diminished self-care and increasing erratic behaviors at home in absence of outpatient supports - Based on interview today difficult to differentiate acute stress reaction and disorganization of thought process secondary to severe anxiety and possibly sleep deprivation as compared to manic episode or psychosis. Seems to be responding positively to Risperdal so far and will make a 0.25 mg twice daily dose prn available for acute anxiety today and continue the 0.5 mg bedtime dose for now. Risks and benefits of the medication reviewed. Unclear if this will be an active treatment at time of discharge and will hold off on ordering additional lab work the present time but we will need fasting labs if she is discharged on the medication - Patient is denying suicidal or homicidal ideation - Will need aftercare arranged - Will need family meeting - Mother has history of MS. 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 Consider MRI - Patient will participate in therapeutic programming as tolerated 04/21 - Increase risperidone to 1mg HS to target psychosis/alaina. - Encourage group attendance and participation as able to tolerate. - Will attempt a second family meeting tomorrow, if patient is able to tolerate. - Patient has submitted a 72 hour notice, but is not stable or discharge due to degree of disorganization. She is not able to answer basic questions, is distraught and disorganized. - Recommend brain MRI as an outpatient. - Encourage healthy coping skills. 04/22 -Continue risperidone and increase to 1.5 mg nightly. Fasting glucose and lipid profile reviewed and within normal limits. -Family meeting held today. Consider the need for a 302 involuntary commitment versus discharge AMA, as she is unwilling to rescind her notice. -Will need referral for outpatient care. -Infectious disease consult requested at mother's request, due to her concerns that acute onset psychosis could be related to salmonella. It does appear that this is reported in the literature and is a known neurological complication. Family is asking about additional testing or treatment for salmonella and if that may help her current symptoms. Discharge / Aftercare Planning Primary Care Physician: Name: Paul VALDEZ with [facility] [email or web address] Therapist: Name: none [employer] Laborer: Name: none Visit Code E&M Code: 93760 Inventory Assets Strengths: Able to communicate, accepting of treatment Needs: Support, medication management Risk Factors Assessment : Yes /single/: No Higher / Fall in social status: No Health problems: No Mental Health Diagnoses: No Substance use disorders: No Previous attempt: No Previous psychiatric stay: No Hopelessness: No Smoker: No Protective Factors Assessment Mu-Ism beliefs: Yes : No Responsible for young children: No Employed: Yes Supportive family: Yes Good rapport with provider: No (no OP providers) Data Vital Signs Last 24 Hrs: Date Time Temp Pulse Resp B/P (MAP) Pulse Ox O2 Delivery O2 Flow Rate FiO2 04/22/18 06:46 36.8 72 16 111/73 100 98/68 Meds Administered Last 24 Hrs: Meds Administered (Past 24Hrs) Medications (Trade) Dose Ordered Sig/Anabella Route Start Time Stop Time Status Last Admin Dose Admin Risperidone (Risperdal Tab) 0.25 mg BID PRN PO 04/20/18 10:45 04/20/18 13:51 DC 04/20/18 12:31 0.25 MG Risperidone (Risperdal Tab) 0.5 mg HS PO 04/20/18 22:00 04/21/18 13:13 DC 04/20/18 21:13 0.5 MG Risperidone (Risperdal Tab) 0.5 mg BID PRN PO 04/20/18 14:00 05/20/18 10:44 04/21/18 15:51 0.5 MG Lorazepam (Ativan Tab) 0.5 mg Q6H PRN PO 04/20/18 14:00 05/20/18 13:59 04/21/18 23:54 0.5 MG Risperidone (Risperdal Tab) 1 mg HS PO 04/21/18 22:00 05/21/18 21:59 04/21/18 21:13 1 MG Lab Results Last 24 Hrs: Last 24 Hours Test 04/22/18 08:17
--- NOTE | 2018-04-22 11:37 | Progress Note ---
Progress Note Date of Service Apr 22, 2018. Progress Note ID Consult Dictated #[id number] A/P: 1. Salmonella gastroenteritis, resolved -No indication for antibiotic treatment, symptoms resolved -Patient requested probiotics, no contraindication from ID standpoint -Salmonella unrelated to current psych issues -No further ID recs, thank you
--- NOTE | 2018-04-22 12:09 | INFECT. DISEASE CONSULTATION ---
DATE OF CONSULTATION: 04/22/2018 HISTORY OF PRESENT ILLNESS: This is a 17-year-old female who was admitted to the hospital on the after she had an episode of anxiety and unspecified psychosis. She was evaluated on the for the same. She returned to the ER based upon her mother's encouragement per the H and P. She recently was seen in the Emergency Room on the 30 of March, and at that time, she had tested positive for Salmonella. She is a recent graduate of [employer] and did attend a picnic where a known Salmonella outbreak had occurred. She did have some nausea and vomiting and diarrhea. She did have a mild leukocytosis at that time with a white blood cell count of 13,000. She was discharged from the Emergency Room on the with a prescription for Zofran. She states her nausea and vomiting have resolved completely. She occasionally continues to have loose stools, but denies any abdominal pain. Her appetite is stable. Overall, she states she is feeling well. She was not treated with antibiotics. On this admission, her white blood cell count is normal at 9. UA was negative. She has had no additional micro. She has had no abdominal imaging. Upon my examination, she is ambulating in the hallway without difficulty. She denies any nausea, vomiting, diarrhea or abdominal pain. She denies any fevers or chills. She states that no other family members were affected; however, she states they did not attend the picnic with her. She did have several friends who also were affected, but they have had resolution in her symptoms as well. I did speak with nursing separately who states that family had some concern that the Salmonella gastroenteritis could have been a cause for her psychotic episode. She is currently on a number of psychiatric meds and appears to be tolerating them well. She is requesting probiotics. REVIEW OF SYSTEMS: Her remaining review of symptoms is reviewed and is unremarkable. PAST MEDICAL HISTORY: Unremarkable. PAST SURGICAL HISTORY: Unremarkable. ALLERGIES: SHE HAS A LATEX ALLERGY. FAMILY HISTORY: Noncontributory. SOCIAL HISTORY: Negative for alcohol use, tobacco use or drug use. She is a recent graduate from [employer] and was diagnosed with Salmonella on 30 of March. She did have a positive stool culture at that time. CURRENT MEDICATIONS: Risperidone, Ativan, Tylenol, Maalox, Kaopectate, milk of magnesia, Vistaril. PHYSICAL EXAMINATION: VITAL SIGNS: She is afebrile, pulse 72, respiratory rate 16, blood pressure 111/73, oxygen saturation is 98% on room air. GENERAL: She is awake, alert and oriented x3. She is in no acute distress. HEENT: Mucous membranes are moist. Extraocular muscles are intact. HEART: Regular. LUNGS: Clear. ABDOMEN: Soft, nontender, nondistended. There is no edema. SKIN: Without rash. LABORATORY STUDIES: CBC on the 28, white blood cell count 9.6, hemoglobin 14, platelets 377. Chemistry panel on the 28, sodium 140, potassium 3.6, chloride 108, bicarbonate 23, BUN 6, creatinine 0.6, glucose 92. LFTs are within normal limits. UA was negative. Urine drug screen is negative. Previous micro stool culture on the was positive. There is no additional micro or imaging to review. ASSESSMENT AND PLAN: Salmonella gastroenteritis. Her symptoms have resolved. Certainly, there is no contraindication to probiotics and she is interested in beginning probiotics. They will be started here and can be continued on an outpatient basis. There is no indication for any additional antibiotics. I do not feel that there is a relationship between her recent episode of gastroenteritis and her current psychiatric concerns and there are no further ID recommendations at this time. Thank you for this consultation.
[2018-04-22] MEDS: LACTOBACILLUS ACIDOPHILUS (FLORANEX) TAB PO SCH ×2 (12:30→17:41)
[2018-04-22] MEDS: ACETAMINOPHEN 325 MG TAB PO PRN (19:46)
[2018-04-22] MEDS ORDERED: RISPERIDONE 1 MG TAB PO SCH (22:00)
[2018-04-23] MEDS ORDERED: RISPERIDONE ODT 1MG PO PRN (08:15)
[2018-04-23 08:31] VITALS: BP_SYST 108; BP_SYST 121; BP_DIAS 72; BP_DIAS 84; PULSE 111; PULSE 139; TEMP 36.7
[2018-04-23] MEDS: LACTOBACILLUS ACIDOPHILUS (FLORANEX) TAB PO SCH ×5 (09:00→20:52)
--- NOTE | 2018-04-23 10:10 | Psychiatric Progress Notes ---
Progress Note Date of Service Apr 23, 2018. Interval History Tami Peres is a 17-year-old female admitted on Apr 19, 2018 at 23:10 who currently lives with her parents in a private home in [facility]. She was admitted through the ER after 2 presentations in one day , initially presenting for workup of possible UTI, but appeared anxious and disorganized and returned after initial discharge for mental health eval at mother's encouragement. Patient is found to be a rather difficult historian due to circumstantial to tangential thought process. Chief Complaint "A little better ". Subjective Patient was seen & assessed interval progress reviewed with Treatment Team. She had a difficult family meeting with her parents, the social contact worker, and this physician yesterday, had to leave at one point as she was overwhelmed, tangential, labile and tearful, and becoming more distraught. After much discussion and with parental support, she rescinded her 72 hour notice. Parents stated they were concerned about her coming home in her current state as she is unable to function. They discussed some of the stressors leading up to her decompensation, including strained relationship with her father and relationship problems between her parents. The infectious disease consult was discussed, as well as current treatment plan and outpatient recommendations. Staff reports she continues to be labile, easily tearful and overwhelmed, disorganized with difficulty communicating her thoughts, and tangential. She is difficult to reassure despite attempts for multiple staff. She attends groups, but has difficulty with the structure at times. She reported difficulty swallowing pills. Her mother visited and assisted her with doing laundry, and the patient struggled with this task, as she got very upset when clothing was put in medical drawers instead of bedside table drawers. She got very upset when she spilled some water on her blanket, unsure whether or not the water with dry on its own. She has a large stuffed animal that she is carried around the unit with her, and held it while watching TV with peers last evening. She required nursing assistance last evening as she felt hot in her room, wanted her night light and bed adjusted. On my assessment, she states that she is feeling a little better today, feels calmer and better able to communicate. She was upset that she did not like her breakfast choices, and requested different food, which also occurred yesterday. She states that food taste different since she was sick with salmonella. She is willing to try the M -Tab formulation of risperidone, but is worried that she will not like the taste. She repeatedly and frequently apologizes, stating "I was taught that if I thought I did something wrong, to apologize," but cannot explain what she thinks she is doing wrong. She is concerned with "not wanting to bother people, " so perseverates and worries about asking for help. She remains very anxious about the time, her schedule, and what will be happening, repeatedly asking if she has any meetings today, and stating that she was very unnerved by her family meeting yesterday because she knew she had a meeting, but not what time, and did not think her father was coming, so was thrown off when he arrived late. She is able to talk about the ongoing strain in her relationship with her father, stating that he was upset that she would not clean her room, which she says she was purposefully making messy as a way to rebel against her parents ' authority, because "I am paying rent for that room, so I should be able to do what I want." She further states that she wanted to quit her job at [employer] as it was stressful, but her father told her that she needed to work and earn money. 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 She feels it is unfair that she has to work and says she wants to "take a break and do something fun, take a year off, go to the beach with my friends like all my friends do." She struggles to identify treatment goals, stating she wants her father to "pressure me less," wants to "keep my room clean ," but with ongoing questioning and clarification states that she has found working on coping skills helpful. Sleep Information Total Hours of Sleep: 6.00 Meal Information Percent of Breakfast Consumed: 20 Percent of Lunch Consumed: 50 Percent of Dinner Consumed: 50 Mental Status Exam During interview pt is: alert and oriented, cooperative Appearance: appropriately dressed, appropriately groomed, appeared stated age Eye contact is: good Motor behavior is: steady gait & station, no abnormal motor movements Speech: other (Plaintive tone at times) Affect: labile (Repeatedly becomes overwhelmed and distraught, acts if she is going to start crying, but is a bit less pronounced than previously in her stay) , anxious Mood is: other ("A little better.") Thought process: circumstantial, tangential, looseness of associations, other ( Slightly more organized today) Thought content: cognitive distortions, other (Negative for overt paranoia or other delusions) Suicidal thought are: denied Homicidal thoughts are: denied Hallucinations: denies auditory, denies visual Cognition: other (Attention is impaired, unable to process or retain information.) Intelligence estimated to be: average Insight: limited Judgement: limited Impression 17-year-old female without prior psychiatric history who presented on urging of her family with disorganized thought process, diminished sleep, and anxiety. She appears to have multiple chronic and acute stressors including history of angry sibling with significant emotional dysregulation and behavioral disturbance in the household, strained relationship with parents, transitioning from school to work, a recent medical illness receiving treatment for salmonella earlier this month which was associated with significant weight loss , and there has been strain in her relationship with her father and in her parents' relationship, which she feels responsible for. Unclear if showing signs of budding primary thought disorder or possibly bipolar affective disorder. Dx: Unspecified trauma and stress related disorder, provisional; r/o unspecified psychosis; r/o bpad Plan (1) Acute stress reaction 04/20 - Patient requires inpatient hospitalization at the present time due to disorganization of thought process, diminished self-care and increasing erratic behaviors at home in absence of outpatient supports - Based on interview today difficult to differentiate acute stress reaction and disorganization of thought process secondary to severe anxiety and possibly sleep deprivation as compared to manic episode or psychosis. Seems to be responding positively to Risperdal so far and will make a 0.25 mg twice daily dose prn available for acute anxiety today and continue the 0.5 mg bedtime dose for now. Risks and benefits of the medication reviewed. Unclear if this will be an active treatment at time of discharge and will hold off on ordering additional lab work the present time but we will need fasting labs if she is discharged on the medication - Patient is denying suicidal or homicidal ideation - Will need aftercare arranged - Will need family meeting - Mother has history of MS. 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 Consider MRI - Patient will participate in therapeutic programming as tolerated 04/21 - Increase risperidone to 1mg HS to target psychosis/alaina. - Encourage group attendance and participation as able to tolerate. - Will attempt a second family meeting tomorrow, if patient is able to tolerate. - Patient has submitted a 72 hour notice, but is not stable or discharge due to degree of disorganization. She is not able to answer basic questions, is distraught and disorganized. - Recommend brain MRI as an outpatient. - Encourage healthy coping skills. 04/22 -Continue risperidone and increase to 1.5 mg nightly. Fasting glucose and lipid profile reviewed and within normal limits. -Family meeting held today. Consider the need for a 302 involuntary commitment versus discharge AMA, as she is unwilling to rescind her notice. -Will need referral for outpatient care. -Infectious disease consult requested at mother's request, due to her concerns that acute onset psychosis could be related to salmonella. It does appear that this is reported in the literature and is a known neurological complication. Family is asking about additional testing or treatment for salmonella and if that may help her current symptoms. 04/23 -Patient reports difficulty swallowing pills, and is willing to try risperidone M tab. -Continue inpatient treatment is 201 voluntary commitment, she rescinded her 72 hour notice. -Family is requesting a referral to [facility], but patient is not yet able to complete the necessary paperwork. -Continue to attend groups, work on healthy coping skills and a discharge safety plan, and consider the need for a repeat family meeting prior to discharge. (2) Salmonella poisoning 04/23 -appreciate infectious disease recommendations. Probiotic started. They do not recommend any additional testing or antibiotic treatment, and do not think that her psychiatric symptoms are related to her infection. Discharge / Aftercare Planning Primary Care Physician: Name: Paul VALDEZ with [facility] [email or web address] Therapist: Name: none Telemarketing Fundraiser: Name: none Visit Code E&M Code: 10575 Inventory Assets Strengths: Able to communicate, accepting of treatment Needs: Support, medication management Risk Factors Assessment : Yes /single/: No Higher / Fall in social status: No Health problems: No Mental Health Diagnoses: No Substance use disorders: No Previous attempt: No Previous psychiatric stay: No Hopelessness: No Smoker: No Protective Factors Assessment Presybeterian beliefs: Yes : No Responsible for young children: No Employed: Yes Supportive family: Yes Good rapport with provider: No (no OP providers) Data Vital Signs Last 24 Hrs: Date Time Temp Pulse Resp B/P (MAP) Pulse Ox O2 Delivery O2 Flow Rate FiO2 04/23/18 08:31 36.7 111 16 108/72 139 121/84 Meds Administered Last 24 Hrs: Meds Administered (Past 24Hrs) Medications (Trade) Dose Ordered Sig/Anabella Route Start Time Stop Time Status Last Admin Dose Admin Risperidone (Risperdal Tab) 1 mg HS PO 04/21/18 22:00 04/22/18 10:21 DC 04/21/18 21:13 1 MG Risperidone (Risperdal Tab) 1.5 mg HS PO 04/22/18 22:00 04/23/18 08:16 DC 04/22/18 21:35 1.5 MG Lactobacillus Acidophilus (Floranex Tab) 4 tab TIDM PO 04/22/18 12:30 05/22/18 12:29 04/22/18 17:41 4 TAB
[2018-04-23] MEDS: RISPERIDONE ODT 0.5MG PO SCH (20:51)
[2018-04-24] MEDS: LACTOBACILLUS ACIDOPHILUS (FLORANEX) TAB PO SCH ×3 (09:00→17:30)
--- NOTE | 2018-04-24 12:53 | Psychiatric Progress Notes ---
Progress Note Date of Service Apr 24, 2018. Interval History Tami Peres is a 17-year-old female admitted on Apr 19, 2018 at 23:10 who currently lives with her parents in a private home in [facility]. She was admitted through the ER after 2 presentations in one day , initially presenting for workup of possible UTI, but appeared anxious and disorganized and returned after initial discharge for mental health eval at mother's encouragement. Patient is found to be a rather difficult historian due to circumstantial to tangential thought process. Chief Complaint "I was more optimistic this morning. ". Subjective Patient was seen & assessed interval progress reviewed with Treatment Team. The patient's conversation is rambling and anxious today as she talks about having called her mother this AM to ask for visitors to come. She worries about every aspect of that conversation in terms of did she call her too early, will her friends be around and available to visit, whether or not she did the right thing. She is also worrying about her participation in groups, saying that her values do not always match that of her peers (ie others saying negative things about the police, when she thinks police are "the good guys") which then causes her to be quiet, not wanting to challenge other peoples' beliefs. She perceives others as saying she is "old fashioned" because of her beliefs, and feels sad that they don't see the kindness in it. She asked me to review her meds and to see if she has been taking them. The probiotic pill is too big and mother will be bringing in homemade applesauce with which to take it. She describes that her thoughts are more slowed today and is feeling better , clearer in her thoughts. She rates her mood 7/10 and "more happy". She reports dry mouth as a side effect to meds. Review of Systems Constitutional: No fever, No chills, No sweats, No weight loss, No weakness, No fatigue, No problem reported ENT: + problem reported (dry mouth) Respiratory: No cough, No sputum, No wheezing, No shortness of breath, No dyspnea on exertion, No dyspnea at rest, No hemoptysis, No problem reported Cardiovascular: No chest pain, No orthopnea, No PND, No edema, No claudication , No palpitations, No problem reported Abdomen: No pain, No nausea, No vomiting, No diarrhea, No constipation, No GI bleeding, No problem reported Musculoskeletal: No joint pain, No muscle pain, No swelling, No calf pain, No problem reported Neurologic: No memory loss, No paralysis, No weakness, No numbness/tingling, No vertigo, No balance problems, No problem reported Psychiatric: + anxiety Integumentary: No rash, No itch, No new/changing skin lesions, No color change , No bleeding, No problem reported Sleep Information Total Hours of Sleep: 6.75 Meal Information Percent of Breakfast Consumed: 75 Percent of Lunch Consumed: 50 Percent of Dinner Consumed: 75 Mental Status Exam During interview pt is: alert and oriented, cooperative Appearance: appropriately dressed, appropriately groomed, appeared stated age Eye contact is: good Motor behavior is: steady gait & station, no abnormal motor movements Speech: other (Somewhat rambling and disorganized) Affect: anxious Mood is: anxious Thought process: circumstantial, tangential, looseness of associations, other ( Slightly more organized today) Thought content: cognitive distortions, other (Negative for overt paranoia or other delusions) Suicidal thought are: denied Homicidal thoughts are: denied Hallucinations: denies auditory, denies visual Cognition: language grossly intact Intelligence estimated to be: average Insight: limited Judgement: limited Impression The patient reports improvement to her thinking today and is not labile, tearful. Tolerating increase in risperdal and change to ODT. Odd presentation , and difficult to distinguish whether it is a primary thought disorder, or something more on the bipolar spectrum. Will need to be seen longitudinally to further clarify. No yet able to function without the structure of the inpatient setting. Plan (1) Acute stress reaction 04/20 - Patient requires inpatient hospitalization at the present time due to disorganization of thought process, diminished self-care and increasing erratic behaviors at home in absence of outpatient supports - Based on interview today difficult to differentiate acute stress reaction and disorganization of thought process secondary to severe anxiety and possibly sleep deprivation as compared to manic episode or psychosis. Seems to be responding positively to Risperdal so far and will make a 0.25 mg twice daily dose prn available for acute anxiety today and continue the 0.5 mg bedtime dose for now. Risks and benefits of the medication reviewed. Unclear if this will be an active treatment at time of discharge and will hold off on ordering additional lab work the present time but we will need fasting labs if she is discharged on the medication - Patient is denying suicidal or homicidal ideation - Will need aftercare arranged - Will need family meeting - Mother has history of MS. 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 Consider MRI - Patient will participate in therapeutic programming as tolerated 04/21 - Increase risperidone to 1mg HS to target psychosis/alaina. - Encourage group attendance and participation as able to tolerate. - Will attempt a second family meeting tomorrow, if patient is able to tolerate. - Patient has submitted a 72 hour notice, but is not stable or discharge due to degree of disorganization. She is not able to answer basic questions, is distraught and disorganized. - Recommend brain MRI as an outpatient. - Encourage healthy coping skills. 04/22 -Continue risperidone and increase to 1.5 mg nightly. Fasting glucose and lipid profile reviewed and within normal limits. -Family meeting held today. Consider the need for a 302 involuntary commitment versus discharge AMA, as she is unwilling to rescind her notice. -Will need referral for outpatient care. -Infectious disease consult requested at mother's request, due to her concerns that acute onset psychosis could be related to salmonella. It does appear that this is reported in the literature and is a known neurological complication. Family is asking about additional testing or treatment for salmonella and if that may help her current symptoms. 04/23 -Patient reports difficulty swallowing pills, and is willing to try risperidone M tab. -Continue inpatient treatment is 201 voluntary commitment, she rescinded her 72 hour notice. -[facility], but patient is not yet able to complete the necessary paperwork. -Continue to attend groups, work on healthy coping skills and a discharge safety plan, and consider the need for a repeat family meeting prior to discharge. 04/24 - Continue current meds - Reality orientation - encourage patient's ongoing participation in groups (2) Salmonella poisoning 04/23 -appreciate infectious disease recommendations. Probiotic started. They do not recommend any additional testing or antibiotic treatment, and do not think that her psychiatric symptoms are related to her infection. Discharge / Aftercare Planning Primary Care Physician: Name: Paul Dowell [facility] Appointment Notes: follow up as needed - [address] [facility], [address], [place], [place] Psychiatrist: Name: Kvng Salazar Phone Number: [phone] Date of Appointment: May 08, 2018 Time of Appointment: 8:30 a.m. [facility] [address] [facility] [address] Therapist: Name: Kvng Low Phone Number: [phone] Date of Appointment: May 01, 2018 Time of Appointment: 9:30 a.m. Appointment Notes: [address] [facility] [place] [id number] Spooling Machine Operator: Name: none Other: Name of Appointment #1: Kvng Salazar - follow up appointment Date of Appointment #1: May 22, 2018 Time of Appointment #1: 2:40 p.m. Appointment #1 [facility] [address] [facility] Visit Code E&M Code: 98726 Inventory Assets Strengths: Able to communicate, accepting of treatment Needs: Support, medication management Risk Factors Assessment : Yes /single/: No Higher / Fall in social status: No Health problems: No Mental Health Diagnoses: No Substance use disorders: No Previous attempt: No Previous psychiatric stay: No Hopelessness: No Smoker: No Protective Factors Assessment Mu-Ism beliefs: Yes : No Responsible for young children: No Employed: Yes Supportive family: Yes Good rapport with provider: No (no OP providers) Data Vital Signs Last 24 Hrs: Last Vital Signs Documentation Date Time Temp Pulse Resp B/P (MAP) Pulse Ox O2 Delivery O2 Flow Rate FiO2 04/23/18 08:31 36.7 111 16 108/72 139 121/84 04/19/18 20:36 98 Room Air Meds Administered Last 24 Hrs: Meds Administered (Past 24Hrs) Medications (Trade) Dose Ordered Sig/Anabella Route Start Time Stop Time Status Last Admin Dose Admin Risperidone (Risperdal Tab) 1.5 mg HS PO 04/22/18 22:00 04/23/18 08:16 DC 04/22/18 21:35 1.5 MG Risperidone (Risperdal M Tab) 1.5 mg HS PO 04/23/18 22:00 05/23/18 21:59 04/23/18 20:51 1.5 MG Lab Results Last 24 Hrs: 04/19/18 22:55 Red Blood Count 4.67, Mean Corpuscular Volume 88.4, Mean Corpuscular Hemoglobin 30.0, Mean Corpuscular Hemoglobin Concent 33.9, Mean Platelet Volume 9.0, Neutrophils (%) (Auto) 65.8, Lymphocytes (%) (Auto) 27.9, Monocytes (%) (Auto) 5.2, Eosinophils (%) (Auto) 0.6, Basophils (%) (Auto) 0.3, Neutrophils # (Auto) 6.32, Lymphocytes # (Auto) 2.68, Monocytes # (Auto) 0.50, Eosinophils # (Auto) 0.06, Basophils # (Auto) 0.03 04/19/18 22:55 Test 04/19/18 00:00 04/19/18 22:55 04/22/18 08:46 Urine Color YELLOW Urine Appearance CLEAR (CLEAR) Urine pH 5.0 (4.5-7.5) Urine Specific [place] 1.020 (1.000-1.030) Urine Protein NEG (NEG) Urine Glucose (UA) NEG (NEG) Urine Ketones 4+ (NEG) Urine Occult Blood NEG (NEG) Urine Nitrite NEG (NEG) Urine Bilirubin NEG (NEG) Urine Urobilinogen NEG (NEG) Urine Leukocyte Esterase NEG (NEG) Urine Test NEG (NEG) Urine Opiates Screen NEG (NEG) Urine Methadone, Qualitative NEG (NEG) Urine Barbiturates NEG (NEG) Urine Phencyclidine (PCP) Level NEG (NEG) Ur Amphetamine/Methamphetamine NEG (NEG) MDMA (Ecstasy) Screen NEG (NEG) Urine Benzodiazepines Screen NEG (NEG) Urine Cocaine Metabolite NEG (NEG) Urine Marijuana (THC) NEG (NEG) White Blood Count 9.61 K/uL (4.8-10.8) Red Blood Count 4.67 M/uL (4.2-5.4) Hemoglobin 14.0 g/dL (12.0-16.0) Hematocrit 41.3 % (37-47) Mean Corpuscular Volume 88.4 fL (80-100) Mean Corpuscular Hemoglobin 30.0 pg (25-34) Mean Corpuscular Hemoglobin Concent 33.9 g/dl (32-36) Platelet Count 377 K/uL (130-400) Mean Platelet Volume 9.0 fL (7.4-10.4) Neutrophils (%) (Auto) 65.8 % Lymphocytes (%) (Auto) 27.9 % Monocytes (%) (Auto) 5.2 % Eosinophils (%) (Auto) 0.6 % Basophils (%) (Auto) 0.3 % Neutrophils # (Auto) 6.32 K/uL (1.4-6.5) Lymphocytes # (Auto) 2.68 K/uL (1.2-3.4) Monocytes # (Auto) 0.50 K/uL (0.11-0.59) Eosinophils # (Auto) 0.06 K/uL (0-0.5) Basophils # (Auto) 0.03 K/uL (0-0.2) RDW Standard Deviation 44.7 fL (36.4-46.3) RDW Coefficient of Variation 13.9 % (11.5-14.5) Immature Granulocyte % (Auto) 0.2 % Immature Granulocyte # (Auto) 0.02 K/uL (0.00-0.02) Anion Gap 9.0 mmol/L (3-11) Estimated GFR () > 150.0 Estimated GFR (Non- 130.7 BUN/Creatinine Ratio 9.2 (10-20) Calcium Level 8.6 mg/dl (8.5-10.1) Total Bilirubin 0.7 mg/dl (0.2-1) Direct Bilirubin 0.2 mg/dl (0-0.2) Aspartate Amino Transf (AST/SGOT) 20 U/L (15-37) Alanine Aminotransferase (ALT/SGPT) 69 U/L (12-78) Alkaline Phosphatase 67 U/L (45-117) Total Protein 7.5 gm/dl (6.4-8.2) Albumin 4.2 gm/dl (3.4-5.0) Thyroid Stimulating Hormone (TSH) 1.710 uIu/ml (0.300-4.500) Ethyl Alcohol mg/dL < 3.0 mg/dl (0-3) Fasting Glucose 92 mg/dl (70-99) Triglycerides Level 68 mg/dl (0-150) Cholesterol Level 120 mg/dl (0-200) HDL Cholesterol 35 mg/dl LDL Cholesterol, Calculated 71 mg/dl VLDL Cholesterol, Calculated 14 mg/dl Cholesterol/HDL Ratio 3.4
[2018-04-24 14:55] VITALS: BP 103/75; PULSE 92; TEMP 37
[2018-04-24] MEDS: RISPERIDONE ODT 0.5MG PO SCH (22:26)
[2018-04-25] MEDS: LACTOBACILLUS ACIDOPHILUS (FLORANEX) TAB PO SCH ×3 (09:00→17:32)
--- NOTE | 2018-04-25 09:11 | Psychiatric Progress Notes ---
Progress Note Date of Service Apr 25, 2018. Interval History Tami Peres is a 17-year-old female admitted on Apr 19, 2018 at 23:10 who currently lives with her parents in a private home in [facility]. She was admitted through the ER after 2 presentations in one day , initially presenting for workup of possible UTI, but appeared anxious and disorganized and returned after initial discharge for mental health eval at mother's encouragement. Patient is found to be a rather difficult historian due to circumstantial to tangential thought process. Chief Complaint "Yesterday and today were pretty good. Do you have questions for me, they told me you might have questions for me". Subjective Patient was seen & assessed interval progress reviewed with Treatment Team. Staff report the patient has been "stabilizing", but remains disorganized at times on the unit. Pt was seen today to assess progress since admission. Pt is cheerful and reports she is "pretty good". Pt initiates conversation with discussion about completing her safety plan and other requirements for discharge. Before this provider has the opportunity to explain procedure, the patient begins various conversations including the "coping skills of my family" , the "cute way my parents met", and the upcoming visit planned with her maternal aunt. Pt is occasionally able to redirect herself back to the topic of her treatment; however, more often requires redirection from this provider. Pt states she feels she has been struggling with the idea of being an adult, but still living with her family. She states, "I think I'm realizing the world isn't black and white, it's also roger, and all the other fun colors too." Pt denies any concerns at the moment. She was informed that she would likely require further treatment, but was not able to process explanation of steps needed for discharge at today's visit. Pt does not report SI or other psychiatric or physical concerns. Review of Systems Psych: denies symptoms other than stated above Constitutional: denied Cardiovascular: denied GI: denied Neurologic: denied Remainder of 10 body systems also reviewed and denied other than noted above. Sleep Information Total Hours of Sleep: 7.00 Meal Information Percent of Breakfast Consumed: 75 Percent of Lunch Consumed: 95 Percent of Dinner Consumed: 50 Mental Status Exam During interview pt is: alert and oriented, cooperative Appearance: appropriately dressed, appropriately groomed, appeared stated age Eye contact is: good Motor behavior is: steady gait & station, no abnormal motor movements Speech: other (rambling, tangential, requiring frequent redirection ) Affect: anxious (restless, rambling) Mood is: other ("pretty good") Thought process: circumstantial, tangential, looseness of associations, other ( Slightly more organized today, still having diffiuclty remaining on one topic ) Thought content: cognitive distortions, other (Negative for overt paranoia or other delusions) Suicidal thought are: denied Homicidal thoughts are: denied Hallucinations: denies auditory, denies visual Cognition: language grossly intact Intelligence estimated to be: average Insight: limited Judgement: limited Impression The patient is reported to be stabilizing over time, but remains disorganized in conversation. She is focused on discharge, but is easily distracted from this conversation toward other unrelated topics. It remains difficult to determine diagnosis as patient is showing ongoing disorganization and hyperverbal speech, but not necessarily overt manic behaviors. She is reported to be improving, but would greatly benefit from ongoing inpatient treatment until this trend shows consistency. Given current level of functioning, the patient would likely decompensation quickly if outside of a structured inpatient setting; therefore, hesitant to discharge prematurely. It is recommended that the patient have an additional family meeting as she would likely benefit more from a session in a more organized state. Hopeful this could occur this weekend. Tolerating medications well. Plan (1) Acute stress reaction 04/20 - Patient requires inpatient hospitalization at the present time due to disorganization of thought process, diminished self-care and increasing erratic behaviors at home in absence of outpatient supports - Based on interview today difficult to differentiate acute stress reaction and disorganization of thought process secondary to severe anxiety and possibly sleep deprivation as compared to manic episode or psychosis. Seems to be responding positively to Risperdal so far and will make a 0.25 mg twice daily dose prn available for acute anxiety today and continue the 0.5 mg bedtime dose for now. Risks and benefits of the medication reviewed. Unclear if this will be an active treatment at time of discharge and will hold off on ordering additional lab work the present time but we will need fasting labs if she is discharged on the medication - Patient is denying suicidal or homicidal ideation - Will need aftercare arranged - Will need family meeting - Mother has history of MS. 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 Consider MRI - Patient will participate in therapeutic programming as tolerated 04/21 - Increase risperidone to 1mg HS to target psychosis/alaina. - Encourage group attendance and participation as able to tolerate. - Will attempt a second family meeting tomorrow, if patient is able to tolerate. - Patient has submitted a 72 hour notice, but is not stable or discharge due to degree of disorganization. She is not able to answer basic questions, is distraught and disorganized. - Recommend brain MRI as an outpatient. - Encourage healthy coping skills. 04/22 -Continue risperidone and increase to 1.5 mg nightly. Fasting glucose and lipid profile reviewed and within normal limits. -Family meeting held today. Consider the need for a 302 involuntary commitment versus discharge AMA, as she is unwilling to rescind her notice. -Will need referral for outpatient care. -Infectious disease consult requested at mother's request, due to her concerns that acute onset psychosis could be related to salmonella. It does appear that this is reported in the literature and is a known neurological complication. Family is asking about additional testing or treatment for salmonella and if that may help her current symptoms. 04/23 -Patient reports difficulty swallowing pills, and is willing to try risperidone M tab. -Continue inpatient treatment is 201 voluntary commitment, she rescinded her 72 hour notice. -Family is requesting a referral to [facility], but patient is not yet able to complete the necessary paperwork. -Continue to attend groups, work on healthy coping skills and a discharge safety plan, and consider the need for a repeat family meeting prior to discharge. 04/24 - Continue current meds - Reality orientation - encourage patient's ongoing participation in groups 04/25 - Continue current medication regimen - Encourage progress, hopeful for consistency in improvement - Will need family meeting prior to discharge (2) Salmonella poisoning 04/23 -appreciate infectious disease recommendations. Probiotic started. They do not recommend any additional testing or antibiotic treatment, and do not think that her psychiatric symptoms are related to her infection. Discharge / Aftercare Planning Primary Care Physician: Name: Paul Dowell [facility] Appointment Notes: follow up as needed - [address], [address], [place], [place] Psychiatrist: Name: [facility] - Dr. Salazar Phone Number: [phone] Date of Appointment: May 08, 2018 Time of Appointment: 8:30 a.m. Appointment Notes: [address] [facility], [place] [address] Therapist: Name: [facility] Magalys Low Phone Number: [phone] Date of Appointment: May 01, 2018 Time of Appointment: 9:30 a.m. [facility] [address] [facility] [address] [employer] Manager: Name: none Other: Name of Appointment #1: [facility] Magalys Salazar - follow up appointment Date of Appointment #1: May 22, 2018 Time of Appointment #1: 2:40 p.m. Appointment #1 Notes: [address] [facility], [place] [address] Visit Code E&M Code: 77843 Inventory Assets Strengths: Able to communicate, accepting of treatment Needs: Support, medication management Risk Factors Assessment : Yes /single/: No Higher / Fall in social status: No Health problems: No Mental Health Diagnoses: No Substance use disorders: No Previous attempt: No Previous psychiatric stay: No Hopelessness: No Smoker: No Protective Factors Assessment Worship beliefs: Yes : No Responsible for young children: No Employed: Yes Supportive family: Yes Good rapport with provider: No (no OP providers) Data Vital Signs Last 24 Hrs: Date Time Temp Pulse Resp B/P (MAP) Pulse Ox O2 Delivery O2 Flow Rate FiO2 04/24/18 14:55 37.0 92 16 103/75 Meds Administered Last 24 Hrs: Meds Administered (Past 24Hrs) Medications (Trade) Dose Ordered Sig/Anabella Route Start Time Stop Time Status Last Admin Dose Admin Risperidone (Risperdal M Tab) 1.5 mg HS PO 04/23/18 22:00 05/23/18 21:59 04/24/18 22:26 1.5 MG
[2018-04-25 12:02] VITALS: BP_SYST 110; BP_DIAS 74; BP_DIAS 78; PULSE 102; PULSE 91; TEMP 36.7
[2018-04-25] MEDS: RISPERIDONE ODT 0.5MG PO SCH (22:24)
--- NOTE | 2018-04-26 07:56 | Psychiatric Progress Notes ---
Progress Note Date of Service Apr 26, 2018. Interval History Tami Peres is a 17-year-old female admitted on Apr 19, 2018 at 23:10 who currently lives with her parents in a private home in [facility]. She was admitted through the ER after 2 presentations in one day , initially presenting for workup of possible UTI, but appeared anxious and disorganized and returned after initial discharge for mental health eval at mother's encouragement. Patient is found to be a rather difficult historian due to circumstantial to tangential thought process. Chief Complaint "I'm doing better, I'm trying to be involved with the other guests". Subjective Patient was seen & assessed interval progress reviewed with Nursing. Staff report the patient had a good evening. She received a visit from her friend and mother. Pt was seen today to assess progress since admission. Pt states she is feeling as though "I'm able to remember things better." She remains rather tangential and is tearful at times when discussing her father being out of town and her being the youngest patient on the unit. She feels this increased emotionality may be related to being on her period. Pt reports concern about her dose of Risperdal as "I like to read before I go to bed and it makes me sleepy." Pt denies any current physical symptoms and denies onset of new psychiatric concerns. Review of Systems Psych: denies symptoms other than stated above Constitutional: denied Cardiovascular: denied GI: denied Neurologic: denied Remainder of 10 body systems also reviewed and denied other than noted above. Sleep Information Total Hours of Sleep: 5.25 Meal Information Percent of Breakfast Consumed: 50 Percent of Lunch Consumed: 50 Percent of Dinner Consumed: 80 Mental Status Exam During interview pt is: alert and oriented, cooperative Appearance: appropriately dressed, appropriately groomed, appeared stated age Eye contact is: good Motor behavior is: steady gait & station, no abnormal motor movements Speech: other (rambling and tangential) Affect: tearful, labile (primarily euthymic, suddenly tearful when discussing her father), euthymic Mood is: other ("Doing better") Thought process: circumstantial, tangential, looseness of associations, other ( Continues to have diffiuclty remaining on one topic ) Thought content: cognitive distortions, other (Negative for overt paranoia or other delusions) Suicidal thought are: denied Homicidal thoughts are: denied Hallucinations: denies auditory, denies visual Cognition: language grossly intact Intelligence estimated to be: average Insight: limited Judgement: limited Impression The patient is reported to be stabilizing over time, but remains disorganized in conversation, slightly more labile today which she believes is related to recently starting her menses. Given current level of functioning, the patient would likely decompensation quickly if outside of a structured inpatient setting ; therefore, hesitant to discharge prematurely. Planning for family meeting if mother is available on Saturday. Discussed increasing dose of Risperdal to 2mg HS to further aid in stabilization of symptoms as well as for ease of dosing on an outpatient basis. Plan (1) Acute stress reaction 04/20 - Patient requires inpatient hospitalization at the present time due to disorganization of thought process, diminished self-care and increasing erratic behaviors at home in absence of outpatient supports - Based on interview today difficult to differentiate acute stress reaction and disorganization of thought process secondary to severe anxiety and possibly sleep deprivation as compared to manic episode or psychosis. Seems to be responding positively to Risperdal so far and will make a 0.25 mg twice daily dose prn available for acute anxiety today and continue the 0.5 mg bedtime dose for now. Risks and benefits of the medication reviewed. Unclear if this will be an active treatment at time of discharge and will hold off on ordering additional lab work the present time but we will need fasting labs if she is discharged on the medication - Patient is denying suicidal or homicidal ideation - Will need aftercare arranged - Will need family meeting - Mother has history of MS. 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 Consider MRI - Patient will participate in therapeutic programming as tolerated 04/21 - Increase risperidone to 1mg HS to target psychosis/alaina. - Encourage group attendance and participation as able to tolerate. - Will attempt a second family meeting tomorrow, if patient is able to tolerate. - Patient has submitted a 72 hour notice, but is not stable or discharge due to degree of disorganization. She is not able to answer basic questions, is distraught and disorganized. - Recommend brain MRI as an outpatient. - Encourage healthy coping skills. 04/22 -Continue risperidone and increase to 1.5 mg nightly. Fasting glucose and lipid profile reviewed and within normal limits. -Family meeting held today. Consider the need for a 302 involuntary commitment versus discharge AMA, as she is unwilling to rescind her notice. -Will need referral for outpatient care. -Infectious disease consult requested at mother's request, due to her concerns that acute onset psychosis could be related to salmonella. It does appear that this is reported in the literature and is a known neurological complication. Family is asking about additional testing or treatment for salmonella and if that may help her current symptoms. 04/23 -Patient reports difficulty swallowing pills, and is willing to try risperidone M tab. -Continue inpatient treatment is 201 voluntary commitment, she rescinded her 72 hour notice. -Family is requesting a referral to [facility], but patient is not yet able to complete the necessary paperwork. -Continue to attend groups, work on healthy coping skills and a discharge safety plan, and consider the need for a repeat family meeting prior to discharge. 04/24 - Continue current meds - Reality orientation - encourage patient's ongoing participation in groups 04/25 - Continue current medication regimen - Encourage progress, hopeful for consistency in improvement - Will need family meeting prior to discharge 04/26 - Increase Risperdal M Tab to 2mg HS - Explore possibility of family meeting with mother on Saturday (2) Salmonella poisoning 04/23 -appreciate infectious disease recommendations. Probiotic started. They do not recommend any additional testing or antibiotic treatment, and do not think that her psychiatric symptoms are related to her infection. Discharge / Aftercare Planning Primary Care Physician: Name: Paul Dowell [facility] Appointment Notes: follow up as needed - [address] [facility], [address], [place], [place] Psychiatrist: Name: Kvng Salazar Phone Number: [phone] Date of Appointment: May 08, 2018 Time of Appointment: 8:30 a.m. Appointment Notes: [address] [place] [address] Therapist: Name: [facility] Magalys Low Phone Number: [phone] Date of Appointment: May 01, 2018 Time of Appointment: 9:30 a.m. Appointment Notes: [address] [place] [address] [employer] Operator: Name: none Other: Name of Appointment #1: [facility] Magalys Salazar - follow up appointment Date of Appointment #1: May 22, 2018 Time of Appointment #1: 2:40 p.m. Appointment #1 Notes: [address] [facility], [place] [address] Visit Code E&M Code: 71944 Inventory Assets Strengths: Able to communicate, accepting of treatment Needs: Support, medication management Risk Factors Assessment : Yes /single/: No Higher / Fall in social status: No Health problems: No Mental Health Diagnoses: No Substance use disorders: No Previous attempt: No Previous psychiatric stay: No Hopelessness: No Smoker: No Protective Factors Assessment Uatsdin beliefs: Yes : No Responsible for young children: No Employed: Yes Supportive family: Yes Good rapport with provider: No (no OP providers) Data Vital Signs Last 24 Hrs: Date Time Temp Pulse Resp B/P (MAP) Pulse Ox O2 Delivery O2 Flow Rate FiO2 04/25/18 12:02 36.7 91 18 110/74 102 110/78
[2018-04-26] MEDS: LACTOBACILLUS ACIDOPHILUS (FLORANEX) TAB PO SCH ×3 (08:31→17:20)
--- NOTE | 2018-04-26 09:15 | Psych Management Progress Note ---
Psychiatry Miscellaneous Date of Service: Apr 26, 2018. Patient seen, MS assessed. Rates mood as improving, eating breakfast with peers. Encouraged cooperation with care and treatment plan as outlined by allied health prescriber.
[2018-04-26 09:33] VITALS: BP 120/84; PULSE 112; TEMP 36.6
[2018-04-26] MEDS: RISPERIDONE ODT 1MG PO SCH (22:46)
[2018-04-26] MEDS: ACETAMINOPHEN 325 MG TAB PO PRN (23:42)
--- NOTE | 2018-04-27 07:47 | Psychiatric Progress Notes ---
Progress Note Date of Service Apr 27, 2018. Interval History Tami Peres is a 17-year-old female admitted on Apr 19, 2018 at 23:10 who currently lives with her parents in a private home in [facility]. She was admitted through the ER after 2 presentations in one day , initially presenting for workup of possible UTI, but appeared anxious and disorganized and returned after initial discharge for mental health eval at mother's encouragement. Patient is found to be a rather difficult historian due to circumstantial to tangential thought process. Chief Complaint "I'm good today, first, do you have any questions for me?". Subjective Patient was seen & assessed interval progress reviewed with Nursing. Staff report the patient rated herself a "9 and hopeful" last evening, conversations with staff reported to be less tangential. Pt was seen today to assess progress since admission. Pt states she is doing well. She has been interactive with her peers in the milieu. Pt is aware of a family meeting scheduled with both of her parents for tomorrow morning. She asks this provider what her responsibilities are before discharge. Discussed completion of her safety plan and jotting down any topics she wishes to discuss at her family session tomorrow. Pt denies any physical or psychiatric concerns today. She denies SI. Review of Systems Psych: denies symptoms other than stated above Constitutional: denied Cardiovascular: denied GI: denied Neurologic: denied Remainder of 10 body systems also reviewed and denied other than noted above. Sleep Information Total Hours of Sleep: 5.75 Meal Information Percent of Breakfast Consumed: 75 Percent of Lunch Consumed: 50 Percent of Dinner Consumed: 80 Mental Status Exam During interview pt is: alert and oriented, cooperative Appearance: appropriately dressed, appropriately groomed, appeared stated age Eye contact is: good Motor behavior is: steady gait & station, no abnormal motor movements Speech: other (rambling, slightly less tangential) Affect: euthymic Mood is: other ("I'm good") Thought process: circumstantial Thought content: reality based without delusions, other (Negative for overt paranoia or other delusions) Suicidal thought are: denied Homicidal thoughts are: denied Hallucinations: denies auditory, denies visual Cognition: language grossly intact Intelligence estimated to be: average Insight: fair Judgement: fair Impression Pt improving, stabilizing over time. Tolerating risperidone 2mg qHS. Scheduled for family session tomorrow morning with both parents, could consider discharge after family session if outcome is positive and no concerns are ongoing. Pt denying SI and feeling optimistic about plans post-discharge. Plan (1) Acute stress reaction 04/20 - Patient requires inpatient hospitalization at the present time due to disorganization of thought process, diminished self-care and increasing erratic behaviors at home in absence of outpatient supports - Based on interview today difficult to differentiate acute stress reaction and disorganization of thought process secondary to severe anxiety and possibly sleep deprivation as compared to manic episode or psychosis. Seems to be responding positively to Risperdal so far and will make a 0.25 mg twice daily dose prn available for acute anxiety today and continue the 0.5 mg bedtime dose for now. Risks and benefits of the medication reviewed. Unclear if this will be an active treatment at time of discharge and will hold off on ordering additional lab work the present time but we will need fasting labs if she is discharged on the medication - Patient is denying suicidal or homicidal ideation - Will need aftercare arranged - Will need family meeting - Mother has history of MS. 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 Consider MRI - Patient will participate in therapeutic programming as tolerated 04/21 - Increase risperidone to 1mg HS to target psychosis/alaina. - Encourage group attendance and participation as able to tolerate. - Will attempt a second family meeting tomorrow, if patient is able to tolerate. - Patient has submitted a 72 hour notice, but is not stable or discharge due to degree of disorganization. She is not able to answer basic questions, is distraught and disorganized. - Recommend brain MRI as an outpatient. - Encourage healthy coping skills. 04/22 -Continue risperidone and increase to 1.5 mg nightly. Fasting glucose and lipid profile reviewed and within normal limits. -Family meeting held today. Consider the need for a 302 involuntary commitment versus discharge AMA, as she is unwilling to rescind her notice. -Will need referral for outpatient care. -Infectious disease consult requested at mother's request, due to her concerns that acute onset psychosis could be related to salmonella. It does appear that this is reported in the literature and is a known neurological complication. Family is asking about additional testing or treatment for salmonella and if that may help her current symptoms. 04/23 -Patient reports difficulty swallowing pills, and is willing to try risperidone M tab. -Continue inpatient treatment is 201 voluntary commitment, she rescinded her 72 hour notice. -Family is requesting a referral to [email or web address], but patient is not yet able to complete the necessary paperwork. -Continue to attend groups, work on healthy coping skills and a discharge safety plan, and consider the need for a repeat family meeting prior to discharge. 04/24 - Continue current meds - Reality orientation - encourage patient's ongoing participation in groups 04/25 - Continue current medication regimen - Encourage progress, hopeful for consistency in improvement - Will need family meeting prior to discharge 04/26 - Increase Risperdal M Tab to 2mg HS - Explore possibility of family meeting with mother on Friday 04/27 - Tolerating Risperdal M Tab 2mg qHS - Family session scheduled for Saturday - Consider discharge after meeting (2) Salmonella poisoning 04/23 -appreciate infectious disease recommendations. Probiotic started. They do not recommend any additional testing or antibiotic treatment, and do not think that her psychiatric symptoms are related to her infection. Discharge / Aftercare Planning Primary Care Physician: Name: Paul Dowell [facility] Appointment Notes: follow up as needed - [facility], [address], [place], [place] Psychiatrist: Name: Kvng Salazar Phone Number: [phone] Date of Appointment: May 08, 2018 Time of Appointment: 8:30 a.m. Appointment Notes: [address] [place] [address], [place] [address] Therapist: Name: [employer] DayRadha Low Phone Number: [phone] Date of Appointment: May 01, 2018 Time of Appointment: 9:30 a.m. Appointment Notes: [address] [place] [address] Watch Repair Technician: Name: none Other: Name of Appointment #1: Kvng Salazar - follow up appointment Date of Appointment #1: May 22, 2018 Time of Appointment #1: 2:40 p.m. Appointment #1 Notes: [address] [place] [address], [place] [address] Visit Code E&M Code: 96998 Inventory Assets Strengths: Able to communicate, accepting of treatment Needs: Support, medication management Risk Factors Assessment : Yes /single/: No Higher / Fall in social status: No Health problems: No Mental Health Diagnoses: No Substance use disorders: No Previous attempt: No Previous psychiatric stay: No Hopelessness: No Smoker: No Protective Factors Assessment Baptism beliefs: Yes : No Responsible for young children: No Employed: Yes Supportive family: Yes Good rapport with provider: No (no OP providers) Data Vital Signs Last 24 Hrs: Date Time Temp Pulse Resp B/P (MAP) Pulse Ox O2 Delivery O2 Flow Rate FiO2 04/26/18 09:33 36.6 112 18 120/84 Meds Administered Last 24 Hrs: Meds Administered (Past 24Hrs) Medications (Trade) Dose Ordered Sig/Anabella Route Start Time Stop Time Status Last Admin Dose Admin Risperidone (Risperdal M Tab) 2 mg HS PO 04/26/18 22:00 05/26/18 21:59 04/26/18 22:46 2 MG
[2018-04-27 08:23] VITALS: BP 110/73; PULSE 116; TEMP 36.6
[2018-04-27] MEDS: LACTOBACILLUS ACIDOPHILUS (FLORANEX) TAB PO SCH ×3 (08:28→17:09)
[2018-04-27] MEDS: RISPERIDONE ODT 1MG PO SCH (22:09)
[2018-04-28] MEDS: LACTOBACILLUS ACIDOPHILUS (FLORANEX) TAB PO SCH ×2 (08:42→11:36)
[2018-04-28 09:14] VITALS: BP 112/78; PULSE 100; TEMP 37.8
[2018-04-28] MEDS ORDERED: RSP2 PO (11:04)
--- NOTE | 2018-04-28 11:06 | Discharge Instructions ---
Discharge Information Report Includes Report will include the: Discharge Instructions & Summary Admission Admission Date / Time: Apr 19, 2018 at 23:10 Reason for Admission: Unspecified Mood Disorder Discharge Discharge Diagnosis / Problem: Acute stress reaction Condition at Discharge: Good Discharge Goals Goal(s): Decrease discomfort, Improve function, Increase independence, Improve disease control, Learn about illness, Therapeutic intervention, Prevent Disease Progression Activity Recommendations Activity Limitations: resume your previous activity . Instructions / Follow-Up Instructions / Follow-Up . SPECIAL CARE INSTRUCTIONS: 1. Follow through with your scheduled aftercare appointments. If unable to keep an appointment, please call to reschedule. 2. Take your medication only as prescribed. Medication should not be changed or stopped without the approval of your doctor. In the event of worsening symptoms or concerns about side effects, contact your doctor immediately. 3. Utilize new healthy coping skills, anger management skills, and stress management skills learned during your hospitalization. Journal feelings and process them with a support person. Identify stressors or situations that may result in relapse, deterioration or inappropriate behaviors and develop a plan to deal with those issues. 4. If your coping skills are ineffective and you are in crisis, contact your outpatient providers for direction. If unable to reach your providers, please call the CAN HELP LINE AT or go to the closest Emergency Room. 5. Avoid alcohol and un-prescribed drugs. 6. You have been provided with the Mental Health Advance Directives Pamphlet for your review. AFTERCARE APPOINTMENTS: * Please call your insurance company prior to your scheduled appointment to confirm your aftercare providers are covered. Take your insurance information to your appointments. . Discharge / Aftercare Planning Primary Care Physician: Name: Paul MATTHEW Appointment Notes: follow up as needed - [address], [address], [place], [place] Psychiatrist: Name: Emme E2MSadilson [facility] Magalys Salazar Phone Number: [phone] Date of Appointment: May 08, 2018 Time of Appointment: 8:30 a.m. [facility]ment [facility] [address] [facility] [address] Therapist: [facility] The[facility] Phone Number: [phone] Date of Appointment: May 01, 2018 Time of Appointment: 9:30 a.m. Appointment Comments[facility] [address] [facility] [address] Staff Anesthetist: Name: none Home Health Services: Home Health Services: none Other: Name of Appointment #1: [facility] Dr. Salazar - follow up appointment Date of Appointment #1: May 22, 2018 Time of Appointment #1: 2:40 p.m. Appointment #1 Notes: [address] [facility] [place] [address] . Follow-Up Care Plan for Follow-Up Care: Pt's aftercare was established during this admission to allow for timely followup with psychiatric providers following discharge. Pt has been assigned to a psychiatric prescriber for management of medications as well as an outpatient therapist. Current Hospital Diet Patient's current hospital diet: Regular Diet Discharge Diet Recommended Diet: Regular Diet Procedures Procedures Performed: No Lipid Panel Test 04/22/18 08:46 Range/Units Triglycerides Level 68 0-150 mg/dl Cholesterol Level 120 0-200 mg/dl HDL Cholesterol 35 mg/dl Cholesterol/HDL Ratio 3.4 LDL Cholesterol, Calculated 71 mg/dl Pending Studies Pending Studies at Discharge: No Medical Emergencies . Who to Call and When: Medical Emergencies: For questions or emergencies related to your hospital stay, please contact the Inpatient Behavioral Health Unit at [phone]. A sensitizer is on-call 15/04 for the Behavioral Health Unit for emergencies At any time you feel your situation is an emergency, you may also call 911 immediately. . Non-Emergent Contact Non-Emergency issues call your: Primary Care Provider, Psychiatrist, Therapist Advance Directives Do You Have an Existing Mental: No Existing Living Will: No Existing Power of Senior Product Engineer: No Advance Directives Info Given: To Pt/S.O. Advance Directives Reason: Declines as Mental Health Visit. Discharge Summary Admission HPI Per the Admitting provider: This is an interesting young woman without prior formalized mental health history. She was admitted through the ER last evening due to mother's concern that she has not been acting like her normal self. Apparently she has been disorganized in her thinking, rambling in her speech, pacing, waking family members up overnight, anxious, demonstrating diminished self-care. Medical workup in the ER was negative for acute process. Drug screen negative. She received Ativan in the ER. At time of admission to the behavioral health unit she was still anxious, labile, disorganized in her thinking, difficult to redirect. She received Risperdal 0.5 mg last evening and ultimately slept well the group room. On interview patient is felt to be a fair historian. Thoughts still meandering, circumstantial to tangential, however she seems to be improved as compared to description of clinical status last evening. She states she has been feeling "fine" apart from stress associated with being with her family members. She describes her family as controlling, her father in particular who she believes "treats me like trash." She denies physical or sexual abuse. She does identify multiple stressors including graduation from [employer] school where she felt accepted, recently becoming sick with salmonella from a faith function, and by the time she had recovered from that many of her friends had already left for college. She is not planning to attend college, working at [employer], and seems to be struggling with the loss and transition. She repeatedly speaks about the fact that she is now an "adult. " She reports her parents are making her pay rent to stay in the home since last June. She describes long-standing stress associated with her autistic younger sisters dramatic behaviors. Apparently her sister would scream, yell, threatened suicide, threatening homicide. Her younger sister has not been living in the household since 2017. "It was always about her." She reports that her younger brother is in therapy for unknown reasons. She states her mother recently told her that her parents marriage is falling apart within the past few weeks. She seems to recoil from questions about her emotional state. "I never talk about myself." She denies recollection of mood cycles in the past , particularly denies periods of hypomania or alaina. She also denies periods of feeling overtly depressed. She does admit that her sleep has been declining in the past week and missed 1 or 2 nights of sleep this week which is not typical for her however she does state that she felt tired after missing the sleep. Energy has been low. She denies crying spells. Appetite has been diminished with 15 pound weight loss since salmonella earlier this month. She notes declining interest. Denies thoughts of life not being worth living, suicidal ideation, homicidal ideation. Denies any history of self-injurious behaviors were impulses. Denies a history of panic attacks and does not perceive herself to be an excessive worrier at her baseline. Historically she does not like to be in crowds and states that she never liked public high school but did not like the smaller [employer] school. Denies symptoms of OCD, PTSD, hallucinations, or appreciation for delusions. She does perceive feeling more calm this morning after getting the Risperdal last night which was well tolerated. Hospital Course (1) Acute stress reaction 04/20 - Patient requires inpatient hospitalization at the present time due to disorganization of thought process, diminished self-care and increasing erratic behaviors at home in absence of outpatient supports - Based on interview today difficult to differentiate acute stress reaction and disorganization of thought process secondary to severe anxiety and possibly sleep deprivation as compared to manic episode or psychosis. Seems to be responding positively to Risperdal so far and will make a 0.25 mg twice daily dose prn available for acute anxiety today and continue the 0.5 mg bedtime dose for now. Risks and benefits of the medication reviewed. Unclear if this will be an active treatment at time of discharge and will hold off on ordering additional lab work the present time but we will need fasting labs if she is discharged on the medication - Patient is denying suicidal or homicidal ideation - Will need aftercare arranged - Will need family meeting - Mother has history of MS. 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 Consider MRI - Patient will participate in therapeutic programming as tolerated 04/21 - Increase risperidone to 1mg HS to target psychosis/alaina. - Encourage group attendance and participation as able to tolerate. - Will attempt a second family meeting tomorrow, if patient is able to tolerate. - Patient has submitted a 72 hour notice, but is not stable or discharge due to degree of disorganization. She is not able to answer basic questions, is distraught and disorganized. - Recommend brain MRI as an outpatient. - Encourage healthy coping skills. 04/22 -Continue risperidone and increase to 1.5 mg nightly. Fasting glucose and lipid profile reviewed and within normal limits. -Family meeting held today. Consider the need for a 302 involuntary commitment versus discharge AMA, as she is unwilling to rescind her notice. -Will need referral for outpatient care. -Infectious disease consult requested at mother's request, due to her concerns that acute onset psychosis could be related to salmonella. It does appear that this is reported in the literature and is a known neurological complication. Family is asking about additional testing or treatment for salmonella and if that may help her current symptoms. 04/23 -Patient reports difficulty swallowing pills, and is willing to try risperidone M tab. -Continue inpatient treatment is 201 voluntary commitment, she rescinded her 72 hour notice. -Family is requesting a referral to [facility], but patient is not yet able to complete the necessary paperwork. -Continue to attend groups, work on healthy coping skills and a discharge safety plan, and consider the need for a repeat family meeting prior to discharge. 04/24 - Continue current meds - Reality orientation - encourage patient's ongoing participation in groups 04/25 - Continue current medication regimen - Encourage progress, hopeful for consistency in improvement - Will need family meeting prior to discharge 04/26 - Increase Risperdal M Tab to 2mg HS - Explore possibility of family meeting with mother on Friday 04/27 - Tolerating Risperdal M Tab 2mg qHS - Family session scheduled for Saturday - Consider discharge after meeting (2) Salmonella poisoning 04/23 -appreciate infectious disease recommendations. Probiotic started. They do not recommend any additional testing or antibiotic treatment, and do not think that her psychiatric symptoms are related to her infection. Risk Factors Assessment : Yes /single/: No Higher / Fall in social status: No Health problems: No Mental Health Diagnoses: No Substance use disorders: No Previous attempt: No Previous psychiatric stay: No Hopelessness: No Smoker: No Protective Factors Assessment Oriental Orthodox beliefs: Yes : No Responsible for young children: No Employed: Yes Supportive family: Yes Good rapport with provider: No (no OP providers) Day of Discharge Assessment COURSE OF HOSPITALIZATION: 17-year-old female admitted for inpatient mental health treatment due to her mother feeling she was "not acting like her normal self". Pt was reported to have been rambling, disorganized, pacing, and anxious. Pt has responded well to initiation of risperidone during her hospitalization, and her thought processes have slowed and become considerably more organized. Pt's dose of risperidone had been titrated to 2mg qHS during her hospitalization. She was able to participate appropriately in group programming and appeared to be gaining a lot of insight from her time on the unit. Pt participated in 2 family sessions, the most recent just prior to her discharge. Aftercare was arranged during her stay for follow-up with both and therapist and psychiatric at discharge. Patient has engaged in group and recreational therapies during admission, and has completed a safety plan prior to discharge which was personally reviewed by this provider. Risperidone will be converted from M-Tab to standard tablets on discharge, as discussed with patient and mother. DAY OF DISCHARGE ASSESSMENT: Pt's case was reviewed and discussed during treatment team. Staff report the patient has a family meeting scheduled with her parents this morning at 10: 00am. Pt has been coherent, organized, and displaying future thinking on the unit, per staff reports. Pt was seen today to assess readiness for discharge. She states her family meeting was "really good". Pt shares that she was able to talk about some stressors between herself and her parents, and attempt to devise a solution for some of them. Pt feels the meeting was helpful and she is feeling ready for discharge. Pt's parents verbalized agreement and feel comfortable with the plan to discharge today. Pt denies current concerns or any medication issues at this time. Pt has denied SI over the course of her hospitalization and is future oriented today upon evaluation. Based on review of the patient's records and presentation at this encounter, the patient appears appropriate for discharge today. Transition of care record was reviewed with the patient. Pt was encouraged to continue to take medications as prescribed until recommended to stop by another prescriber. The patient presented as alert and cooperative. The patient was casually dressed and groomed. Eye contact was good. No psychomotor restlessness or agitation was noted. Speech was normal in rate, rhythm, and volume. Affect was mood congruent. The patients mood appeared euthymic. Thought processes were clear, coherent and goal directed without evidence of loose associations or flight of ideas. Thought content/perception was reality based without delusions. The patient denied suicidal and homicidal ideation. The patient denied hallucinations and did not appear to be responding to internal stimuli. Cognition was grossly intact with orientation to person, place and time. Fund of Knowledge/Intelligence were consistent with level of education. Insight and Judgement were fair. Laboratory Refer to printed laboratory reports Test 04/19/18 00:00 04/19/18 22:55 04/22/18 08:46 Urine Color YELLOW Urine Appearance CLEAR Urine pH 5.0 Urine Specific Lyons 1.020 Urine Protein NEG Urine Glucose (UA) NEG Urine Ketones 4+ Urine Occult Blood NEG Urine Nitrite NEG Urine Bilirubin NEG Urine Urobilinogen NEG Urine Leukocyte Esterase NEG Urine Test NEG Urine Opiates Screen NEG Urine Methadone, Qualitative NEG Urine Barbiturates NEG Urine Phencyclidine (PCP) Level NEG Ur Amphetamine/Methamphetamine NEG MDMA (Ecstasy) Screen NEG Urine Benzodiazepines Screen NEG Urine Cocaine Metabolite NEG Urine Marijuana (THC) NEG White Blood Count 9.61 Red Blood Count 4.67 Hemoglobin 14.0 Hematocrit 41.3 Mean Corpuscular Volume 88.4 Mean Corpuscular Hemoglobin 30.0 Mean Corpuscular Hemoglobin Concent 33.9 Platelet Count 377 Mean Platelet Volume 9.0 Neutrophils (%) (Auto) 65.8 Lymphocytes (%) (Auto) 27.9 Monocytes (%) (Auto) 5.2 Eosinophils (%) (Auto) 0.6 Basophils (%) (Auto) 0.3 Neutrophils # (Auto) 6.32 Lymphocytes # (Auto) 2.68 Monocytes # (Auto) 0.50 Eosinophils # (Auto) 0.06 Basophils # (Auto) 0.03 RDW Standard Deviation 44.7 RDW Coefficient of Variation 13.9 Immature Granulocyte % (Auto) 0.2 Immature Granulocyte # (Auto) 0.02 Sodium Level 140 Potassium Level 3.6 Chloride Level 108 Carbon Dioxide Level 23 Anion Gap 9.0 Blood Urea Nitrogen 6 Creatinine 0.62 Estimated GFR () > 150.0 Estimated GFR (Non- 130.7 BUN/Creatinine Ratio 9.2 Random Glucose 102 Calcium Level 8.6 Total Bilirubin 0.7 Direct Bilirubin 0.2 Aspartate Amino Transferase (AST) 20 Alanine Aminotransferase (ALT) 69 Alkaline Phosphatase 67 Total Protein 7.5 Albumin 4.2 Thyroid Stimulating Hormone (TSH) 1.710 Ethyl Alcohol mg/dL < 3.0 Fasting Glucose 92 Triglycerides Level 68 Cholesterol Level 120 HDL Cholesterol 35 LDL Cholesterol, Calculated 71 VLDL Cholesterol, Calculated 14 Cholesterol/HDL Ratio 3.4 Total Time Total Time Spent (min): Greater than 30 minutes Total Time Included: examination of the patient, discharge planning, medication reconciliation, communication with other providers Transition of Care Transition of care record: was reviewed with the patient Tobacco Cessation at Discharge Smoking Status: Never Smoker FDA approved Prescription: non-smoker
== END 2018-04-28 11:50 | disposition home or self-care (01) | DRG 880 ==
LOC: C.EDB 20:12 → C.MHU 23:10
PROVIDERS: ADMIT Student in an Organized Health Care Education/Training Program; ATTEND Psychiatry & Neurology Psychiatry
DX: F43.0 Acute stress reaction (principal); A02.0 Salmonella enteritis; Z91.040 Latex allergy status; Z82.49 Family history of ischemic heart disease and other diseases of the circulatory system; Z81.8 Family history of other mental and behavioral disorders

== ENCOUNTER 2022-11-27 17:53 | Inpatient (IN) ==
[2022-11-28] MEDS ORDERED: LIDOCAINE 1% LOCAL 20 ML VIAL INFIL PRN (07:37)
[2022-11-28] MEDS ORDERED: OXYTOCIN 30 UNITS/500 ML BAG IV PRN ×3 (07:37→17:59)
[2022-11-28] MEDS ORDERED: PENICILLIN G POTASSIUM 6 MU in DEXTROSE 5% 250 ML IV STA (07:37)
--- NOTE | 2022-11-28 07:58 | History & Physical Report ---
Date of Service November 28, 2022 Assessment & Plan (1) Elective induction of labor planned: Plan: 22 y/o female at 39+ here for IOL. Patient spontaneously converted to vertex and thus is eligible for IOL. GBS pos. Rh+, RI. FHT: CAT I - moderate variability, baseline 140s, no decels. Proceed with IOL. Epidural if/when desired. Pit when indicated. Anticipated vaginal delivery. c/b 1. GBS pos - treat during labor 2. GDM 3. pre-eclampsia in prior - ASA at 12 weeks Admission and Anticipated Discharge Date Admission Date: November 28, 2022 History of Present Illness Chief Complaint: IOL Primary Care Provider: NO PCP 22 y/o female at 39+ here for IOL. Patient spontaneously converted to vertex and thus is eligible for IOL. GBS pos. Rh+, RI. +FM. No contractions/vaginal bleeding/loss of fluids. c/b 1. GBS pos - treat during labor 2. GDM 3. 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 Last Pap 01/2022 - NIL Allergies Allergy/AdvReac Type Severity Reaction Status Date / Time latex Allergy Intermediate Rash Verified 11/26/22 14:49 Home Medications Medication Instructions Recorded Confirmed Type prenat.vits,sumi,[id number] 1 tab PO DAILY 04/18/22 11/28/22 History acetone (urine) test (Ketone Urine #50 ea 07/09/22 11/28/22 Rx Test strips) blood sugar diagnostic (OneTouch #150 ea 07/09/22 11/28/22 Rx Verio test strips) blood-glucose meter (OneTouch #1 ea 07/09/22 11/28/22 Rx Verio Reflect Meter) lancets 33 gauge (OneTouch Delica #150 ea 07/09/22 11/28/22 Rx Lancets) omeprazole 40 mg capsule,delayed 40 mg PO DAILY 11/28/22 11/28/22 History release Patient History Medical History Hand, foot and mouth disease PIH ( induced hypertension) Varicella vaccination Surgical History No history of previous surgery Family History Mother Heart palpitations Multiple sclerosis Hypertension Father Crohn's disease Enlarged heart Diabetes Denies family history of Ovarian cancer Prostate cancer Myocardial infarction Breast cancer Colorectal cancer Social History Smoking Status: Never smoker Hx Alcohol Use: No Hx Substance Use: No Preferred Language: Macedonian Communication Ability: Effective Card Setter Required: No Beliefs That Will Affect Care: None marital status: marital status details: Torrey Sanchez(28) [phone] Current Living Situation: Spouse Current Living Situation Comment: lives with spouse, daughter, cats-spouse changing litter current occupational status: unemployed current occupation: homemaker Other Information That Helps Us Care for You: No Feels Safe at Home: Yes Safety Concerns: Feels Safe At This Time Childhood Exposure to Second-Hand Smoke: No Dental Care, Regularly: No Physical Activity Frequency: 3-4 Times per Week Seatbelt Use: always Sunscreen Use: Yes Assistive Devices: None Physical Exam Physical Exam: Gen: well appearing gravid female in NAD HEENT: AT NC Resp: no increased work of breathing CV: clinically well perfused : gravid abdomen 3.5/70/-2 Psych: appropriate mood and affect Neuro: alert and oriented FHT: CAT I - moderate variability, baseline 140s, no decels Results & Data ([facility]) Vital Signs (Past 12 Hours) Vital Signs Pulse BP 11/28/22 07:45 96 H 131/87 Laboratory Results 11/28/22 07:58 Supervising Physician Co-Signing Physician Notes patient seen with resident and agree with findings and plan. Resident Activity Tracking Resident Involvement: Resident Care Provided Care Provided: OB Delivery
[2022-11-28 08:24] LABS: Hematocrit (blood only) 34.8 % (37.0-47.0); Hemoglobin 11.5 g/dl (12.0-16.0); Mean Corpuscular Hemoglobin 27.8 pg (25.0-34.0); Mean Corpuscular Volume 84.3 fL (80.0-100.0); Mean Platelet Volume 10.6 fL (9.4-12.4); Platelet Count 315 K/uL (130-400); RDW Coefficient of Variation 14.9 % (11.5-14.5); RDW Standard Deviation 45.6 fL (36.4-46.3); Red Blood Count 4.13 M/uL (4.20-5.40); White Blood Count 12.13 K/ul (4.8-10.8)
[2022-11-28] MEDS: LACTATED RINGER'S 1,000 ML IV PRN ×2 (09:03→13:55)
[2022-11-28] MEDS: PENICILLIN G POTASSIUM 3 MU in DEXTROSE 5% 100 ML IV PRN ×2 (13:00→17:04)
[2022-11-28] MEDS ORDERED: SODIUM CHLORIDE 0.9% INJ 10 ML VIAL ONE (13:43)
[2022-11-28] MEDS ORDERED: fentaNYL citrate 100 MCG/2 ML VIAL ONE (13:43)
[2022-11-28] MEDS ORDERED: LIDOCAINE 2%/EPINEPHRINE 1:200,000 20 ML SDV ONE (13:43)
[2022-11-28] MEDS ORDERED: BUPIVACAINE 0.25% 30 ML VIAL ONE (13:43)
[2022-11-28] MEDS ORDERED: ePHEDrine sulfate 50 MG/ML AMP ONE (13:43)
[2022-11-28] MEDS ORDERED: fentaNYL 2MCG/ML ROPIVACAINE 1.25MG/ML 100 ML BAG EPI ONE (13:44)
[2022-11-28] MEDS ORDERED: diphenhydrAMINE 50 MG/ML VIAL IV PRN (14:04)
[2022-11-28] MEDS ORDERED: ePHEDrine sulfate 50 MG/ML AMP IV PRN (14:04)
[2022-11-28] MEDS ORDERED: NALOXONE HCL 1 MG in SODIUM CHLORIDE 0.9% 1000ML 1,000 ML IV PRN (14:04)
[2022-11-28] MEDS ORDERED: fentaNYL 2MCG/ML ROPIVACAINE 1.25MG/ML 100 ML BAG EPI PRN (14:04)
[2022-11-28] MEDS ORDERED: NALOXONE HCL 0.4 MG/1 ML VIAL/CARP IV PRN (14:04)
[2022-11-28] MEDS ORDERED: ONDANSETRON INJ 2 MG/ML 2 ML VIAL IV PRN (14:04)
[2022-11-28] MEDS ORDERED: NALBUPHINE HCL INJ 10 MG/ML AMP IV PRN (14:04)
--- NOTE | 2022-11-28 14:04 | Anesthesiology Consultation ---
Date of Service November 28, 2022 Assessment & Plan ASA ASA2 Proposed Anesthesia Anesthesia Type: Labor Epidural Risk / Benefits Reviewed With: PT / POA / Parent / Guardian, Accepts Plan and Informed Consent Obtained History Height/Weight Height: 5 ft 5 in Weight: 98.43 kg Allergies Allergy/AdvReac Type Severity Reaction Status Date / Time latex Allergy Intermediate Rash Verified 11/26/22 14:49 Medications Home Medications Medication Instructions Recorded Confirmed Last Taken prenat.vits,sumi,[id number] 1 tab PO DAILY 04/18/22 11/28/22 11/26/22 acetone (urine) test (Ketone Urine #50 ea 07/09/22 11/28/22 Unknown Test strips) blood sugar diagnostic (OneTouch #150 ea 07/09/22 11/28/22 Unknown Verio test strips) blood-glucose meter (OneTouch #1 ea 07/09/22 11/28/22 Unknown Verio Reflect Meter) lancets 33 gauge (OneTouch Delica #150 ea 07/09/22 11/28/22 Unknown Lancets) omeprazole 40 mg capsule,delayed 40 mg PO DAILY 11/28/22 11/28/22 11/28/22 release Active Medications Generic Name Dose Route Start Last Admin Trade Name Freq PRN Reason Stop Dose Admin Penicillin G Potassium 3 mu/ 106 mls @ 100 mls/hr 11/28/22 10:37 11/28/22 13:00 Dextrose IV 12/08/22 10:36 100 mls/hr Q4H PRN Administration GBS(+) Until Delivery Lactated Ringer's 1,000 mls @ 125 mls/hr 11/28/22 07:37 11/28/22 13:55 Lr IV 11/30/22 07:36 999 mls/hr .Q8H PRN Administration L&D Protocol Protocol Oxytocin 30 units in 500 mls @ 13 mls/hr 11/28/22 07:37 11/28/22 13:00 Pitocin IV 11/30/22 07:36 0.78 units/hr .Q24H PRN 13 mls/hr Labor Induction/Augmentation Titration Protocol 0.78 UNITS/HR Past Medical History Medical History Hand, foot and mouth disease PIH ( induced hypertension) Varicella vaccination Exercise / Class Metabolic Activity II 4-5 Yardwork/Stairs/Walk up hill Past Family History Family History Mother Heart palpitations Multiple sclerosis Hypertension Father Crohn's disease Enlarged heart Diabetes Denies family history of Ovarian cancer Prostate cancer Myocardial infarction Breast cancer Colorectal cancer Past Surgical History Surgical History No history of previous surgery Past Anesthesia History No Hx of Anesthesia Complications and No Family Hx of Anesthesia Complications History of PONV No Hx of PONV and No Hx of Motion Sickness Social History Smoking Status: Never smoker Hx Alcohol Use: No Hx Substance Use: No Review of Systems denies fever/cough/ colds/ chest pain/ SOB/ JAME denies JAME Physical Exam Vital Signs Last Vital Signs Temp 37.0 C 11/28/22 11:00 Pulse 77 11/28/22 13:59 Resp 18 11/28/22 13:46 BP 124/73 11/28/22 13:58 Pulse Ox 100 11/28/22 13:59 ENMT Mouth: no TMJ abnormality and no dentition abnormality Thyromental Distance: > or= 3.5 Finger Breadths Mallampati Class: II Neck neck extension not limited Respiratory normal respiratory effort; no respiratory distress Auscultation: lungs clear to auscultation bilaterally Cardiovascular Rate/Rhythm: regular rate and regular rhythm Neurologic moves all extremities Psychiatric Orientation: alert and oriented x 3 Testing Laboratory Results 11/28/22 07:58 Blood Type AB Positive 11/28/22 07:58 Antibody Screen NEGATIVE 11/28/22 07:58 11/28/22 10:03 POC Glucose 113 H
--- NOTE | 2022-11-28 14:51 | Labor Progress Brief Note ---
Date of Service November 28, 2022 Subjective Reason For Note: Routine Evaluation Assessment & Plan (1) Elective induction of labor planned: Plan: 22 y/o female at 39+ here for IOL. Patient spontaneously converted to v ertex and thus is eligible for IOL. GBS pos. Rh+, RI. progressing well. Artificial rupture of membranes complete. Category 1 tracing c/b 1. GBS pos - treat during labor 2. GDM 3. pre-eclampsia in prior - ASA at 12 weeks Admission and Anticipated Discharge Date Admission Date: November 28, 2022 Physical Exam Genitourinary: Manual OB Exam: + cervical dilation 6 cm, + cervical effacement 90%, + station -2 and + amniotic fluid bloody OB Exam Monitor Tracing: + external FHT monitor used, + external uterine monitor used, + category I and + normal FHT variability; no early decelerations present, no late decelerations present and no variable decelerations Results & Data ([facility]) Vital Signs (Past 12 Hours) Vital Signs Temp Pulse Resp BP Pulse Ox 11/28/22 07:50 36.6 C 16 11/28/22 14:48 109 H 103/60 93 11/28/22 14:47 83 109/64 11/28/22 14:45 84 111/68 11/28/22 14:44 86 97 11/28/22 14:42 85 114/68 11/28/22 14:40 102 H 113/65 11/28/22 14:39 88 98 11/28/22 14:38 105 H 113/63 11/28/22 14:36 106 H 109/60 11/28/22 14:34 108 H 115/70 99 11/28/22 14:33 84 110/63 11/28/22 14:30 100 H 115/67 11/28/22 14:29 111 H 99 11/28/22 14:28 99 H 119/69 11/28/22 14:24 93 H 99 11/28/22 14:22 96 H 91 11/28/22 14:19 84 100 11/28/22 14:17 87 129/82 11/28/22 14:16 104 H 90 11/28/22 14:14 108 H 100 11/28/22 14:09 93 H 99 11/28/22 14:04 100 H 98 11/28/22 13:59 77 100 11/28/22 13:58 91 H 124/73 11/28/22 13:54 88 99 11/28/22 13:49 89 100 11/28/22 13:46 84 18 160/93 H 11/28/22 13:44 89 100 11/28/22 13:35 21 L 81 L 11/28/22 13:01 85 115/70 11/28/22 12:03 88 124/69 11/28/22 11:00 37.0 C 97 H 112/63 11/28/22 10:29 91 H 113/68 11/28/22 09:36 99 H 134/92 11/28/22 07:45 96 H 131/87 Coding Level of Care Code None Diagnoses Elective induction of labor planned
[2022-11-28] MEDS ORDERED: BENZOCAINE 20% AER SPR 82.5 GM CAN EXT PRN (17:59)
[2022-11-28] MEDS ORDERED: ACETAMINOPHEN 325 MG TAB PO PRN (17:59)
[2022-11-28] MEDS ORDERED: DIPHTHERIA/TETANUS/PERTUSSIS 0.5mL SYR/VIAL (Age 7+yrs) IM ONE (17:59)
[2022-11-28] MEDS ORDERED: HYDROCORTISONE ACETATE 25 MG SUPP PR PRN (17:59)
[2022-11-28] MEDS ORDERED: bisacodyL 10 MG SUPP PR PRN (17:59)
[2022-11-28 18:09] LABS: Base Excess Cord Arterial Bld -8.1 mEq/L (-9-1.8); Base Excess Cord Venous Blood -6.5 mEq/L (-7.7-1.9); CO2 Cord Arterial Blood 74 mmHg (39.1-73.5); Cord Venous Blood HCO3 22 mmol/L (18.4-26.8); Cord Venous Blood PCO2 53 mmHg (30.4-57.2); Cord Venous Blood PO2 23 mmHg (14.1-43.3); Cord Venous Blood pH 7.22 (7.20-7.44); HCO3 Cord Arterial Blood 23 mmol/L (19.7-28.5); O2 Saturation Cord Venous Bld < 60.0 % (<68); Oxygen Sat Cord Arterial Blood < 60.0 % (<60); PO2 Cord Arterial Blood 17 mmHg (4.1-31.7)
--- NOTE | 2022-11-28 18:13 | Anesthesia Procedure Note ---
Date of Service November 28, 2022 Anesthesia Post Epidural Note Vital Signs Vital Signs: Temp Pulse Resp BP Pulse Ox 36.9 C 104 H 16 125/85 100 11/28/22 15:00 11/28/22 18:09 11/28/22 18:05 11/28/22 18:04 11/28/22 18:09 Pain Intensity Bilateral Abdomen: Pain Intensity: 3 Notes Mental Status: alert / awake / arousable and participated in evaluation Nausea / Vomiting: adequately controlled Pain: adequately controlled Airway Patency, RR, SpO2: stable & adequate BP & HR: stable & adequate Hydration State: stable & adequate Neuraxial Anesthesia: was administered and sensory block is resolving Anesthetic Complications: no major complications apparent and Pt Satisfied with anesthetic care Epidural: Removed without complications and With tip intact
[2022-11-28] MEDS: DOCUSATE SODIUM 100 MG CAP PO SCH (21:10)
[2022-11-28] MEDS: IBUPROFEN 600 MG TAB PO PRN (22:04)
--- NOTE | 2022-11-29 02:46 | Delivery Summary ---
DATE OF SERVICE: 11/28/2022. PROCEDURE: Normal spontaneous vaginal delivery with first-degree perineal laceration repair. SURGEON: Robin Polanco MD. TEAM MANAGER: Dr. Ruby Haque, PGY-1. PREOPERATIVE DIAGNOSES: 1. Single intrauterine at 39 weeks 3 days gestational age. 2. Group B streptococcus positive. 3. Gestational diabetes. POSTOPERATIVE DIAGNOSES: 1. Single intrauterine at 39 weeks 3 days gestational age. 2. Group B streptococcus positive. 3. Gestational diabetes. 4. Status post procedure. ESTIMATED BLOOD LOSS: 200 mL. DRAINS: None. FLUIDS: Continuous lactated Ringer. URINE OUTPUT: Not measured. COMPLICATIONS: None. FINDINGS: Viable male with weight and Apgars pending. DESCRIPTION OF PROCEDURE: The patient progressed to 10 cm dilated, 100% effaced, positive 2 station, pushed over intact perineum with epidural anesthesia and delivered a viable male with weight and Apgars as noted above. Head of the delivered in TIMO position, lifted to left transverse. No nuchal cord was noted. Body and shoulders quickly followed. was noted to be vigorous upon delivery. One minute delayed cord clamping was initiated, after which the cord was double clamped and cut. was taken to the waiting nursery staff for further evaluation. Cord segment and cord blood was obtained. Attention was then turned to delivery of the placenta, which was delivered intact, 3-vessel cord, gentle cord traction. On inspection of the perineum, vagina and cervix, noted to be a small first- degree perineal laceration, which was repaired with 3-0 Vicryl in a continuous running locked stitch. Needle, sponge, and instrument counts were correct at the completion of the case. Both the mother and stable in the immediate post-delivery period. Job ID: [id number] [facility]
[2022-11-29] MEDS: IBUPROFEN 600 MG TAB PO PRN ×3 (04:33→20:24)
--- NOTE | 2022-11-29 06:28 | Obstetrical Progress Note ---
Date of Service <Mei Brown MD - Last Filed: 11/29/22 07:04> November 29, 2022 Assessment & Plan <Mei Brown MD - Last Filed: 11/29/22 07:04> (1) care following vaginal delivery: 22 y/o female at 39+ here for IOL now PPD1. GBS pos. Rh+, RI. Tolerating PO. Encourage ambulation. Satisfactory post progress. c/b 1. GBS pos - treat during labor 2. GDM 3. pre-eclampsia in prior - ASA at 12 weeks <Robin Polanco MD - Last Filed: 11/29/22 08:22> (1) care following vaginal delivery: Subjective <Mei Brown MD - Last Filed: 11/29/22 07:04> Ambulation: ambulating normally Voiding: no voiding problems Passing Gas:: Yes Diet Tolerance:: regular diet Lochia:: Small Feeding Type:: breast feeding Physical Exam <Mei Brown MD - Last Filed: 11/29/22 07:04> Gen: well appearing gravid female in NAD HEENT: AT NC Resp: no increased work of breathing CV: clinically well perfused, no calf tenderness : uterine fundus firm non tender at the level of the umbilicus Psych: appropriate mood and affect Neuro: alert and oriented Results & Data ([facility]) <Mei Brown MD - Last Filed: 11/29/22 07:04> Vital Signs (Past 12 Hours) Vital Signs Temp Pulse Pulse Resp BP BP Pulse Ox 11/29/22 03:19 37.0 C 106 H 16 101/63 97 11/28/22 23:35 37.2 C 110 H 14 117/76 98 11/28/22 20:07 37.0 C 100 H 16 137/80 97 11/28/22 19:35 36.7 C 16 11/28/22 19:05 16 11/28/22 18:35 18 11/28/22 19:34 133 H 124/65 11/28/22 19:19 136 H 126/66 11/28/22 19:04 130 H 124/71 97 11/28/22 19:03 129 H 94 11/28/22 18:59 136 H 95 11/28/22 18:54 120 H 99 11/28/22 18:49 99 11/28/22 18:49 124 H 11/28/22 18:49 117 H 130/75 11/28/22 18:44 108 H 100 11/28/22 18:39 108 H 100 11/28/22 18:34 100 11/28/22 18:34 106 H 11/28/22 18:34 102 H 126/71 11/28/22 18:29 104 H 100 11/28/22 18:26 111 H 89 L O2 Del Method 11/29/22 03:19 Room Air 11/28/22 23:35 Room Air 11/28/22 20:07 Room Air 11/28/22 19:35 11/28/22 19:05 11/28/22 18:35 11/28/22 19:34 11/28/22 19:19 11/28/22 19:04 11/28/22 19:03 11/28/22 18:59 11/28/22 18:54 11/28/22 18:49 11/28/22 18:49 11/28/22 18:49 11/28/22 18:44 11/28/22 18:39 11/28/22 18:34 11/28/22 18:34 11/28/22 18:34 11/28/22 18:29 11/28/22 18:26 Laboratory Results 11/28/22 07:58 <Robin Polanco MD - Last Filed: 11/29/22 08:22> Co-Signing Physician Notes patient seen and evaluated and agree with the findings and plan. Routine care. Resident Activity Tracking <Mei Brown MD - Last Filed: 11/29/22 07:04> Resident Involvement: Resident Care Provided Care Provided: OB Delivery
[2022-11-29] MEDS: PRENATAL VITAMIN 1 TAB PO SCH (08:14)
[2022-11-29] MEDS: DOCUSATE SODIUM 100 MG CAP PO SCH ×2 (08:14→20:24)
[2022-11-29] MEDS: FERROUS SULFATE 325 MG TAB PO SCH (08:14)
[2022-11-29] MEDS ORDERED: bisacodyL 5 MG TABEC PO SCH (20:00)
--- NOTE | 2022-11-30 06:03 | Obstetrical Progress Note ---
Date of Service <Mei Brown MD - Last Filed: 11/30/22 06:22> November 30, 2022 Assessment & Plan <Mei Brown MD - Last Filed: 11/30/22 06:22> (1) care following vaginal delivery: 22 y/o female at 39+ here for IOL now PPD2. GBS pos. Rh+, RI. Tolerating PO. Encourage ambulation. Satisfactory post progress. c/b 1. GBS pos - treated during labor 2. GDM 3. pre-eclampsia in prior - ASA at 12 weeks <Amaya Powell MD, FACOG - Last Filed: 11/30/22 10:40> (1) care following vaginal delivery: Subjective <Mei Brown MD - Last Filed: 11/30/22 06:22> Ambulation: ambulating normally Voiding: no voiding problems Passing Gas:: Yes Diet Tolerance:: regular diet Lochia:: Small Feeding Type:: breast feeding Physical Exam <Mei Brown MD - Last Filed: 11/30/22 06:22> Gen: well appearing gravid female in NAD HEENT: AT NC Resp: no increased work of breathing CV: clinically well perfused, no calf tenderness : uterine fundus firm non tender at the level of the umbilicus Psych: appropriate mood and affect Neuro: alert and oriented Results & Data ([facility]) <Mei Brown MD - Last Filed: 11/30/22 06:22> Vital Signs (Past 12 Hours) Vital Signs Temp Pulse Resp BP Pulse Ox O2 Del Method 11/30/22 00:10 36.6 C 108 H 18 124/83 97 Room Air 11/29/22 20:30 36.5 C 104 H 18 117/79 99 Room Air <Amaya Powell MD, FACOG - Last Filed: 11/30/22 10:40> Co-Signing Physician Notes Resident Physician Supervision Note: I interviewed and examined the patient. Discussed with Dr. Brown and agree with findings and plan as documented in the note. Any exceptions or clarifications are listed here: pt doing well and ready for dc home. instructions reviewed. ff 2 down nt, ext nt calves. f/u 6wk pp. Documented By: Amaya Powell MD, FACOG Resident Activity Tracking <Mei Brown MD - Last Filed: 11/30/22 06:22> Resident Involvement: Resident Care Provided Care Provided: OB Delivery
[2022-11-30] MEDS: DOCUSATE SODIUM 100 MG CAP PO SCH (08:20)
[2022-11-30] MEDS: FERROUS SULFATE 325 MG TAB PO SCH (08:20)
[2022-11-30] MEDS: PRENATAL VITAMIN 1 TAB PO SCH (08:20)
== END 2022-11-30 11:53 | disposition home or self-care (01) | DRG 807 ==
LOC: 4S1 11-28 07:28 → 4E2 11-28 19:52